=== PATIENT | male | born 1980 | race Caucasian/White ===

== ENCOUNTER → 2019-12-23 09:21 | Outpatient (CLI) | payer MEDICAID, SELFPAY ==
--- NOTE | 2019-12-23 09:26 | US_ITS ---
APPROVED REPORT Exam Type: Ankle to Brachial Index [employer] Founder: RT Beltran(R) Indications Claudication: Rest Pain: Numbness/Tingling PAD Current Smoker CAD Risk Factors Hypertension CAD Hyperlipidemia Obesity Cardiac Disease Diabetes Current Smoker Surgery/Intervention Stent : L EXTERNAL ILIAC STENTING 11/08/19, KNOWN RIGHT SFA OCCLUDED Pressures/Indices Right Indices Left Indices Brachial 121.00 mmHg Brachial 117.00 mmHg Low Thigh 82.00 mmHg 0.68 Low Thigh 70.00 mmHg 0.58 Calf 81.00 mmHg 0.67 Calf 75.00 mmHg 0.62 Ankle(PT) 83.00 mmHg 0.69 Ankle(PT) 84.00 mmHg 0.69 Ankle(DP) 87.00 mmHg 0.72 Ankle(DP) 80.00 mmHg 0.66 Digit 62.00 mmHg 0.51 Digit 59.00 mmHg 0.49 Findings R JANEE 0.7 L JANEE 0.7 R TBI 0.7 L TBI 0.7 DIMINISHED WAVEFORMS DIMINISHED PULSES Conclusion R JANEE 0.7 L JANEE 0.7 R TBI 0.7 L TBI 0.7 DIMINISHED WAVEFORMS DIMINISHED PULSES Moderate arterial disease Electronically signed by : Pedro Clark MD 12/23/2019 19:04:14
== END ==
PROVIDERS: PCP Family Medicine; Visit Provider Internal Medicine Cardiovascular Disease
DX: I70.213 Atherosclerosis of native arteries of extremities with intermittent claudication, bilateral legs (principal); I73.9 Peripheral vascular disease, unspecified; R60.0 Localized edema
CPT/HCPCS: 93923

== ENCOUNTER → 2020-07-15 17:16 | Outpatient (CLI) | payer MEDICAID, SELFPAY ==
[2020-07-15 17:46] LABS: Basophils # 0.1 K/mm3 (0-0.2); Basophils % 0.7 % (0.1-2.0); Eosinophils # 1.2 K/mm3 (0.0-0.4); Eosinophils % 10.5 % (0.1-12.0); Hematocrit 49.4 % (42.0-52.0); Hemoglobin 16.4 g/dL (14.1-18.0); Lymphocytes # 2.8 K/mm3 (0.7-4.5); Lymphocytes % 24.7 % (10-50); Mean Corpuscular HGB Conc 33.3 g/dL (31.8-35.4); Mean Corpuscular Hemoglobin 32.5 pg (27.0-31.2); Mean Corpuscular Volume 97.5 fl (80-94); Mean Platelet Volume 9.6 fl (7.4-10.4); Monocytes # 0.6 K/mm3 (0.1-1.0); Monocytes % 5.1 % (1.7-9.3); Neutrophils # 6.6 K/mm3 (1.8-7.8); Platelet Count 238 K/mm3 (142-424); Red Blood Count 5.06 M/mm3 (4.60-6.20); White Blood Count 11.2 K/mm3 (4.8-10.8)
[2020-07-15 22:40] LABS: Chloride 100 mmol/L (98-107); Potassium 5.1 mmoL/L (3.5-5.1); Sodium 135 mmol/L (136-145)
[2020-07-15 22:43] LABS: Anion Gap 16.1 mEq/L (5-15); Blood Urea Nitrogen 35 mg/dl (9-20); Carbon Dioxide 24 mmol/L (22.0-30.0); Estimated Glomerular Filt Rate 37 ml/min (>60); GFR (African American) 45 ML/MIN (>60)
[2020-07-15 22:57] LABS: Coronavirus 19 IgG Antibody Negative (Negative); Coronavirus 19 IgM Antibody Negative (Negative)
[2020-07-15 23:18] LABS: Glucose 401 mg/dl (74-100)
== END ==
PROVIDERS: Visit Provider Urology
DX: Z01.818 Encounter for other preprocedural examination (principal); N47.1 Phimosis
CPT/HCPCS: 36415; 80048; 85025; 86328

== ENCOUNTER 2020-07-17 07:51 | Day surgery (SDC) | payer MEDICAID, SELFPAY ==
[2020-07-17] VITALS (12 sets, daily range): BP systolic 93–118; BP diastolic 54–84; PULSE 72–89; RESP 16–18; TEMP 36.2–43; O2SAT 93–95; BMI 30.2
[2020-07-17 08:23] LABS: POC Glucose,Bedside 366 (70-110)
--- NOTE | 2020-07-17 08:47 | P.PN_ITS ---
[facility] Anesthesia Checklist - Patient Identification Patient Identification: Arm Band - Structural Data Admitted From: Home Planned Operative Procedure/s: circumcision Consent for Planned Operative Procedure(s) Verified: Yes Verified Documents: Surgical Consent, History and Physical - NPO Status Verified Time NPO: 00:00 - Additional verifications Anesthesia Reactions: No Hx Blood Transfusions: No Blood Transfusion Reaction: No - Airway Assessment C-Spine Mobility Assessed: Yes (mp2) TMJ Mobility Assessed: Yes Dentition: Good Dentition - Neurological Assessment Level of Consciousness: Awake, Alert - Anesthesia Plan Anesthesia Risk discussed: Yes Anesthesia Plan: Verified ASA Class: III Anesthesia Type: General [facility] History I have reviewed the patient's past medical history: Yes Medical History: Reports:: Congestive Heart Failure, Coronary Artery Disease, Diabetes Mellitus Type 2, Internal Pacemaker, MRSA, Myocardial Infarction Denies:: Cancer, Diabetes Mellitus Type 1, Seizures *Have you ever received a pneumonia vaccine?: No *Have you received a flu vaccine this season?: Yes Other Medical History: Reports: Arthritis. Denies: Blood Transfusion Reaction Anesthesia experience/problems:: nac Other Surgeries: Yes: CABG, Cardiac Catheterization, Open Heart Surgery, Pacemaker, Other (left arm surgery ) Amputation: No Fractures: No - *Social History Last grade of school completed: High school graduate Smoking Status: Current every day smoker Tobacco Type: cigarettes # Packs/Day (cigarettes): 1 Alcohol Intake: never Substance Use Type: denies use *Occupational Status:: unemployed Housing: house Household Members: spouse *Travel in the last 8 weeks: None Family Hx:: Coronary Artery Disease, Diabetes, Heart Attack, Hyperlipidemia, Hypertension, Stroke
[2020-07-17 09:09] LABS: POC Glucose,Bedside 278 (70-110)
[2020-07-17 09:39] LABS: POC Glucose,Bedside 203 (70-110)
[2020-07-17 10:24] LABS: POC Glucose,Bedside 206 (70-110)
--- NOTE | 2020-07-17 11:04 | HMH.ANESI ---
[facility] Anesthesia Record Part I Intake, IV Amount: 1,000 Estimated blood loss (mL): 5 Urine output (mL): 0 Blood Pressure: 93/54 SaO2: 93 Pulse Rate: 81 Respiratory Rate: 16 Temperature: 99.7 F Patient is:: Drowsy, Stable Stable to PACU at:: 11:00
[2020-07-17 11:10] LABS: POC Glucose,Bedside 137 (70-110)
--- NOTE | 2020-07-17 11:47 | SUR.PHASEII ---
1140- pt became sweaty and nauseas. FSBS= 113. R. Misael WIRELESS MANAGER contacted. Pt to sip orange juice. Pt tolerated sips well. family at bedside
[2020-07-17 12:00] LABS: POC Glucose,Bedside 113 (70-110)
--- NOTE | 2020-07-17 12:56 | P.OP_ITS ---
Date of procedure: 07/17/20 Pre-op Diagnosis:: Chronic balanitis Post-op Diagnosis:: Same Procedure performed:: Adult circumcision Surgeon:: Lei Noble MD PREFORMING MACHINE OPERATOR:: Higinio Douglas Anesthesia: [employer] Estimated blood loss (mL): 1 Clinical Note:: 39-year-old white male with a history of diabetes has chronic balanitis and wishes to proceed with circumcision. Operative findings:: No evidence of phimosis or balanitis today. At his office visit recently however there were some chronic foreskin changes. Operative note:: Patient taken to the operating room after informed consent was obtained. Placed on the operating table in the supine position and general anesthesia administered. IV antibiotics and sequential compression devices placed. Patient then prepped and draped in the standard surgical fashion. Local anesthetic was placed around the base of the penis as a ring block. The skin was then marked around the jimenez of the glans while pulling back at the base of the penis to estimate the length of skin that would be needed to be excised. Straight clamp was then placed onto the dorsal foreskin for 30 seconds. Good analgesia was noted. Clamp and removed and the dorsal foreskin incised. Very minimal bleeding. Metzenbaum scissors were then used to incise the skin in a circumferential fashion. Hemostasis been achieved. The proximal and distal foreskin were then reanastomosed with 3-0 chromic's in a simple interrupted fashion. A Vaseline impregnated gauze was passed around the specimen at the end the case. Patient tolerated well there are no complications. Gauze was placed around the Vaseline gauze and secured with tape. A good cosmetic result was noted. Condition: stable Disposition: PACU Specimens:: Foreskin Complications:: None
--- NOTE | 2020-07-17 13:47 | PC.NURSE ---
1108-oral airway removed at this time, O2 sats stable on room air, will continue to monitor
--- NOTE | 2020-07-17 13:54 | PC.NURSE ---
1130-detailed bedside report given to L.KingRN at this time, pt transported to post op via stretcher w/nikki rails up per L.KingRN, pt stable on discharge, vss
--- NOTE | 2020-07-17 13:57 | SUR.PHASEI ---
1130-detailed bedside report given to ,RN, pt transported to post op via stretcher w/nikki rails up per L.KingRN, pt stable upon discharge, vss
--- NOTE | 2020-07-17 13:59 | SUR.PHASEI ---
late entry..... 1105-checked fsbs with results of 134, notified SIMON Mistry at bedside, no further orders
--- NOTE | 2020-07-17 17:26 | P.PN_ITS ---
[facility] Anesthesia Record Part II Discharge Time: 11:30 Destination: Surgical Day Care (OP Surgery) PACU nurse assessment reviewed?: Yes Patient Condition:: Good Anesthesia Complications:: None Swallowing reflex intact?: Yes Cyanosis?: No Blood Pressure: 108/71 Pulse Rate: 85 Temperature: 97.9 F Mental Status: Alert & Oriented Pain level:: 0 Nausea and/or vomitting:: None Intake, IV Amount: 0
== END 2020-07-17 12:30 | disposition home or self-care (01) ==
LOC: OR 07:53
PROVIDERS: PCP Family Medicine; Visit Provider Urology
PROC: (CPT 54150; principal; 2020-07-17 09:15)
DX: N48.1 Balanitis (principal); N47.1 Phimosis; E11.9 Type 2 diabetes mellitus without complications; I73.9 Peripheral vascular disease, unspecified; I25.10 Atherosclerotic heart disease of native coronary artery without angina pectoris; Z95.810 Presence of automatic (implantable) cardiac defibrillator; M19.90 Unspecified osteoarthritis, unspecified site; K21.9 Gastro-esophageal reflux disease without esophagitis; Z95.0 Presence of cardiac pacemaker; Z95.1 Presence of aortocoronary bypass graft; Z88.0 Allergy status to penicillin; Z88.2 Allergy status to sulfonamides; Z88.6 Allergy status to analgesic agent; Z79.82 Long term (current) use of aspirin; Z79.899 Other long term (current) drug therapy; Z79.84 Long term (current) use of oral hypoglycemic drugs; Z72.0 Tobacco use
CPT/HCPCS: 54150; 82962; 96374; J1956; J2405

== ENCOUNTER → 2020-08-06 13:44 | Outpatient (CLI) | payer MEDICAID, SELFPAY | PROVIDERS: Visit Provider Family Medicine | DX: T81.40XA Infection following a procedure, unspecified, initial encounter (principal) | CPT/HCPCS: 87070; 87077; 87186; 87205 ==

== ENCOUNTER → 2020-08-25 17:30 | Outpatient (CLI) | payer MEDICAID, SELFPAY ==
[2020-08-25 19:54] LABS: Chloride 110 mmol/L (98-107); Potassium 4.6 mmoL/L (3.5-5.1); Sodium 141 mmol/L (136-145)
[2020-08-25 19:57] LABS: Anion Gap 15.6 mEq/L (5-15); Blood Urea Nitrogen 25 mg/dl (9-20); Carbon Dioxide 20 mmol/L (22.0-30.0); Estimated Glomerular Filt Rate 61 ml/min (>60); GFR (African American) 74 ML/MIN (>60); Glucose 246 mg/dl (74-100)
[2020-08-25 19:58] LABS: Calcium 9.7 mg/dl (8.4-10.2)
== END ==
PROVIDERS: Visit Provider Family Medicine
DX: R79.89 Other specified abnormal findings of blood chemistry (principal)
CPT/HCPCS: 80048

== ENCOUNTER → 2020-09-22 17:32 | Outpatient (CLI) | payer MEDICAID, SELFPAY ==
[2020-09-22 18:27] LABS: Chloride 103 mmol/L (98-107)
[2020-09-22 18:28] LABS: Sodium 137 mmol/L (136-145)
[2020-09-22 18:30] LABS: Alanine Aminotransferase 19 U/L (12-78); Alkaline Phosphatase 99 U/L (38-126); Aspartate Amino Transferase 20 U/L (17-59); Bilirubin,Total 0.3 mg/dl (0.2-1.3); Blood Urea Nitrogen 21 mg/dl (9-20); Estimated Glomerular Filt Rate 56 ml/min (>60); GFR (African American) 68 ML/MIN (>60)
[2020-09-22 18:31] LABS: Albumin Level 3.7 g/dl (3.5-5.0); Albumin/Globulin Ratio 1.4 (1.1-1.8); Calcium 9.3 mg/dl (8.4-10.2); Carbon Dioxide 25 mmol/L (22.0-30.0); Chol/HDL Ratio 4.9 (1-3.5); Cholesterol 151 mg/dl (140-200); Globulin 2.7 g/dL (1.3-3.2); HDL Cholesterol 31 mg/dl (40-60); Total Protein,Serum 6.4 g/dl (6.3-8.2)
[2020-09-22 18:32] LABS: Creatinine,Urine Random 74 mg/dL (Not Estab.); Microalbumin < 6.000 mg/L (0-16.7)
[2020-09-22 18:35] LABS: Triglycerides 501 mg/dl (30-150)
[2020-09-22 18:37] LABS: Basophils # 0.3 K/mm3 (0-0.2); Basophils % 2.2 % (0.1-2.0); Hematocrit 48.3 % (42.0-52.0); Hemoglobin 15.9 g/dL (14.1-18.0); Lymphocytes # 2.8 K/mm3 (0.7-4.5); Lymphocytes % 22.6 % (10-50); Mean Corpuscular Hemoglobin 31.2 pg (27.0-31.2); Mean Corpuscular Volume 94.8 fl (80-94); Mean Platelet Volume 26.9 fl (7.4-10.4); Monocytes # 0.6 K/mm3 (0.1-1.0); Monocytes % 4.7 % (1.7-9.3); Neutrophils % 64.8 % (37.0-80.0); Platelet Count 197 K/mm3 (142-424); Red Cell Distribution Width 17.6 % (11.5-17.5); White Blood Count 12.3 K/mm3 (4.8-10.8)
[2020-09-22 18:38] LABS: Glucose 469 mg/dl (74-100)
[2020-09-22 18:43] LABS: Direct LDL Cholesterol 67.65 mg/dL (100-129)
[2020-09-22 18:47] LABS: T4 (Thyroxine) 7.9 ug/dl (5.53-11.0)
[2020-09-22 19:01] LABS: Thyroid Stimulating Hormone 0.34 uIU/mL (0.465-4.68)
[2020-09-22 20:56] LABS: Hemoglobin A1C 11.7 % (4.0-6.0)
[2020-09-30 10:48] LABS: Testosterone, Total, LC/MS 187.2 ng/dL (264.0-916.0); Testosterone,Free 3.6 pg/mL (6.8-21.5)
== END ==
PROVIDERS: Visit Provider Family Medicine
DX: N47.1 Phimosis; N48.1 Balanitis; Z79.899 Other long term (current) drug therapy; Z79.4 Long term (current) use of insulin; E11.9 Type 2 diabetes mellitus without complications; E78.5 Hyperlipidemia, unspecified
CPT/HCPCS: 80053; 80061; 82043; 82570; 83036; 84402; 84403; 84436; 84443; 85025

== ENCOUNTER → 2020-12-07 16:50 | Outpatient (CLI) | payer MEDICAID, SELFPAY ==
--- NOTE | 2020-12-07 16:55 | XR_ITS ---
PROCEDURE: XR CHEST PORTABLE CLINICAL HISTORY: COVID Shortness of air, smoker COMPARISON: No exams were available for comparison FINDINGS: Prior CABG. Bipolar pacemaker is present. Linear metallic density noted over the mid thoracic region and 1 area over the left lower lung zone possibly due to overlying artifact. The lungs are clear without infiltrates, suspicious nodules, or pleural effusions. No acute bony abnormalities. IMPRESSION: As above, no acute finding Dictated by: Pedro Clark MD 12/07/2020 17:17 Pedro Clark MD in [facility] 12/07/2020 17:17
[2020-12-09 08:29] LABS: Covid-19 Nasal PCR Sendout P&C NEGATIVE
== END ==
PROVIDERS: PCP Family Medicine; Visit Provider Family Medicine
DX: Z20.822 Contact with and (suspected) exposure to COVID-19 (principal)
CPT/HCPCS: 71045; U0004

== ENCOUNTER → 2021-02-19 10:06 | Outpatient (CLI) | payer MEDICAID, SELFPAY ==
--- NOTE | 2021-02-19 10:10 | XR_ITS ---
PROCEDURE: XR KNEE LT 3V CLINICAL INDICATION: knee pain post fall COMPARISON: No exams were available for comparison FINDINGS: No fracture or dislocation. No lytic or blastic change. There is normal mineralization. The joint spaces are well-preserved. No significant degenerative/arthritic changes. No erosive changes evident. Other findings:No suprapatellar joint effusion. Multiple surgical sejal are noted in the soft tissues IMPRESSION: No acute abnormality. Dictated by: Laly Barr 02/19/2021 16:01 Laly Barr in [facility] 02/19/2021 16:01
== END ==
PROVIDERS: PCP Family Medicine; Visit Provider Family Medicine
DX: M25.569 Pain in unspecified knee (principal)
CPT/HCPCS: 73562

== ENCOUNTER 2021-03-25 14:36 | Emergency (ER) | payer MEDICAID, SELFPAY ==
--- NOTE | 2021-03-25 14:31 | ECG_ITS ---
APPROVED REPORT Exam: Resting ECG HR:82 bpm ECG Measurements Heart Rate 82 AXES WV 172 P 38 QRSd 110 QRS 1 QT 374 T 90 QTc 436 Conclusion Normal sinus rhythm Possible Left atrial enlargement Inferior infarct, age undetermined Anterolateral infarct, age undetermined Abnormal ECG Electronically signed by : Antonio Cohen, 03/26/2021 15:00:16
[2021-03-25 14:37] VITALS: BP 134/88; PULSE 89; RESP 18; TEMP 36.6; O2SAT 96; BMI 32.5
--- NOTE | 2021-03-25 14:40 | XR_ITS ---
PROCEDURE: XR CHEST PORTABLE CLINICAL HISTORY: soa COMPARISON: CR XR CHEST PORTABLE from 12/07/2020 FINDINGS: There has been a prior CABG. Bipolar pacemaker is present from left subclavian approach. The lungs are clear without infiltrates, suspicious nodules, or pleural effusions. No acute bony abnormalities. IMPRESSION: No acute findings. Dictated by: Pedro Clark MD 03/25/2021 15:40 Pedro Clark MD in [facility] 03/25/2021 15:40
--- NOTE | 2021-03-25 14:40 | CT_ITS ---
PROCEDURE: CT HEAD/BRAIN WO CON CLINICAL INDICATION: lethargy, left eye lid drooping COMPARISON: No exams were available for comparison TECHNIQUE: Axial images obtained. All CT scans at the facility use one or more dose reduction, viz: automated exposure control, ma/kV adjustment per patient size (including targeted exams where dose is matched to indication, i.e. head), or iterative reconstruction technique. FINDINGS: No midline shift, mass effect, intracranial hemorrhage, hydrocephalus, or extra-axial fluid collection is evident. The calvarium has an unremarkable appearance. No mastoid effusion. There is mild mucosal thickening of the ethmoid sinuses and left maxillary sinus. IMPRESSION: No acute intracranial findings. Mild sinus disease Dictated by: Pedro Clark MD 03/25/2021 15:48 Pedro Clark MD in [facility] 03/25/2021 15:48
--- NOTE | 2021-03-25 14:41 | CT_ITS ---
Procedure: CT ANGIO NECK CT ANGIO HEAD CLINICAL HISTORY: stroke like symptoms Left eye droop COMPARISON: CT CT ANGIO HEAD from 03/25/2021 TECHNIQUE: IV Contrast: 100ml Isovue 370 Axial images obtained with sagittal and coronal reformats. All CT scans at the facility use one or more dose reduction, viz: automated exposure control, ma/kV adjustment per patient size (including targeted exams where dose is matched to indication, i.e. head), or iterative reconstruction technique. FINDINGS: CT angio neck: Unremarkable appearing aortic arch. No significant carotid stenosis. Minimal plaque is present in the bulbs on both sides with less than 20 percent stenosis. The right vertebral is hypoplastic compared to the left side which appears normal. No significant stenosis. No stenosis occlusion aneurysm or dissection evident within the carotids or vertebrals. CTA head: No aneurysm, AVM, major intracranial occlusive process, or dissection evident. There is persistent origin of the right vertebral artery as a normal variant Incidental findings: Prior CABG. The thyroid gland is enlarged on both sides. There is an ill-defined area of decreased attenuation in the right lobe at 1.8 cm which may be better evaluated with ultrasound. There is moderate mucosal thickening of the left maxillary sinus and mild mucosal thickening of the right maxillary sinus with ethmoid sinus mucosal thickening also noted left greater than right. No intracranial enhancing lesions midline shift or mass effect. No obvious sinus thrombosis IMPRESSION: Unremarkable CTA of the head and neck with no occlusion, aneurysm, or dissection. Sinusitis Enlarged thyroid gland with possible right thyroid nodule which may be better evaluated with ultrasound Dictated by: Pedro Clark MD 03/25/2021 15:59 Pedro Clark MD in [facility] 03/25/2021 15:59
--- NOTE | 2021-03-25 14:42 | HMH.EDGENADL ---
ED Disposition Clinical Impression: Hyperglycemia, Generalized weakness Disposition: Home, Self-Care Condition on Discharge: Good Additional Instructions: Return to the emergency department for worsening weakness elevated blood sugar or any other concerns within the next 24 hours otherwise follow-up with your primary care physician within the next few days for evaluation of blood sugar management Referrals: David Stockton MD [Primary Care Provider] - - Critical Care Critical Care Time: No Attestation: On 03/25/21, the high probability of a clinically significant, sudden or life threatening deterioration of the following system(s) required my full and direct attention, intervention and personal management. The time I documented below is in addition to time spent performing reported procedures but includes the following listed in this critical care notation. Medical Decision Making - Medical Records Medical records reviewed: Yes: I reviewed the patient's medical records. - Ignacio Inquiry Pt receiving controlled substance: No Vital Signs: 03/25/21 14:37 03/25/21 15:26 03/25/21 15:30 Temperature 98 F Temperature Source Oral Pulse Rate 83 84 Pulse Rate [Radial] 89 Respiratory Rate 18 Blood Pressure 143/89 H 143/89 H Blood Pressure [Right Arm] 134/88 Blood Pressure Mean [Right Arm] 103 Blood Pressure Source Automatic Cuff Blood Pressure Position Sitting Blood Pressure Position [Right Arm] Sitting 02 Sat by Pulse Oximetry 96 93 L 92 L Oxygen Delivery Method Room Air Room Air 03/25/21 16:00 Temperature Temperature Source Pulse Rate 76 Pulse Rate [Radial] Respiratory Rate Blood Pressure 144/76 H Blood Pressure [Right Arm] Blood Pressure Mean [Right Arm] Blood Pressure Source Blood Pressure Position Blood Pressure Position [Right Arm] 02 Sat by Pulse Oximetry 95 Oxygen Delivery Method - Lab Data Lab Results 03/25/21 14:36: WBC 9.3, RBC 5.38, Hgb 16.2, Hct 52.4 H, MCV 97.5 H, MCH 30.1, MCHC 30.9 L, RDW 14.9, Plt Count 294, MPV 8.7, Neut % (Auto) 59.6, Lymph % (Auto) 24.6, [place] % (Auto) 6.5, Eos % (Auto) 8.3, Baso % (Auto) 1.0, Neut # (Auto) 5.5, Lymph # (Auto) 2.3, [place] # (Auto) 0.6, Eos # (Auto) 0.8 H, Baso # (Auto) 0.1 03/25/21 14:36: Sodium 135 L, Potassium 4.7, Chloride 101, Carbon Dioxide 30, Anion Gap 8.7, BUN 18, Creatinine 1.30 H, Estimated Creat Clear 121, Estimated GFR 61, Est GFR ( Amer) 73, Glucose 459 H*, Calcium 8.7, Magnesium 2.0, Total Bilirubin 0.4, AST 23, ALT 20, Alkaline Phosphatase 111, Troponin I < 0.01, NT-Pro-B Natriuret Pep 426 H, Total Protein 6.9, Albumin 3.9, Globulin 3.0, Albumin/Globulin Ratio 1.3, TSH 0.51 03/25/21 14:40: VBG pH 7.31, VBG pCO2 51.8 H, VBG pO2 43.0 H, VBG HCO3 25.4, VBG Total CO2 27.0, VBG O2 Saturation 81.1 H, VBG Base Excess -0.8 Result diagrams: 03/25/21 14:36 03/25/21 14:36 Orders (Tests/Meds): ED MEDICATIONS Discontinued Medications Generic Name Dose Route Start Last Admin Trade Name Freq PRN Reason Stop Dose Admin Insulin Human Regular 10 unit 03/25/21 15:47 03/25/21 16:06 Insulin Human Regular 100 Units/Ml 10ml Vial IVP 03/25/21 15:48 10 unit ONCE ONE Administration Iopamidol 100 ml 03/25/21 15:07 03/25/21 15:08 Iopamidol-370 (76%);100ml Bottle IV 03/25/21 15:08 100 ml ONCE ONE Administration Sodium Chloride 40 ml 03/25/21 15:07 03/25/21 15:08 0.9 % Sodium Chloride 50 Ml Vial IV 03/25/21 15:08 40 ml ONCE ONE Administration Sodium Chloride 10 ml 03/25/21 15:07 03/25/21 15:08 Sodium Chloride 0.9% 10ml Syr (Rad Only) IV 03/25/21 15:08 10 ml ONCE ONE Administration ORDERS Category Date Time Status Troponin I Q3H Lab 03/25/21 17:45 Ordered Troponin I Q3H Lab 03/25/21 20:45 Ordered Medical Decision Narrative: 40-year-old male presents with generalized weakness as above. He is in no acute distress nontoxic-appearing with normal vital signs initial
[2021-03-25 14:49] LABS: Basophils # 0.1 K/mm3 (0-0.2); Eosinophils # 0.8 K/mm3 (0.0-0.4); Eosinophils % 8.3 % (0.1-12.0); Hematocrit 52.4 % (42.0-52.0); Hemoglobin 16.2 g/dL (14.1-18.0); Lymphocytes # 2.3 K/mm3 (0.7-4.5); Lymphocytes % 24.6 % (10-50); Mean Corpuscular HGB Conc 30.9 g/dL (31.8-35.4); Mean Corpuscular Hemoglobin 30.1 pg (27.0-31.2); Mean Corpuscular Volume 97.5 fl (80-94); Mean Platelet Volume 8.7 fl (7.4-10.4); Monocytes # 0.6 K/mm3 (0.1-1.0); Monocytes % 6.5 % (1.7-9.3); Neutrophils # 5.5 K/mm3 (1.8-7.8); Neutrophils % 59.6 % (37.0-80.0); Platelet Count 294 K/mm3 (142-424); Red Blood Count 5.38 M/mm3 (4.60-6.20); Red Cell Distribution Width 14.9 % (11.5-17.5); White Blood Count 9.3 K/mm3 (4.8-10.8)
[2021-03-25 14:50] LABS: VBG Base Excess -0.8 mmol/L (-2.4-2.3); VBG HCO3 25.4 mmol/L (23-30); VBG Oxygen Saturation 81.1 % (50-70); VBG PCO2 51.8 mmol/L (35-51); VBG PH 7.31 mmol/L (7.31-7.41)
--- NOTE | 2021-03-25 14:55 | PC.NURSE ---
Rad at bedside
[2021-03-25 14:56] LABS: Chloride 101 mmol/L (98-107); Sodium 135 mmol/L (136-145)
--- NOTE | 2021-03-25 14:56 | PC.NURSE ---
pt going to CT
[2021-03-25 14:57] LABS: Potassium 4.7 mmoL/L (3.5-5.1)
[2021-03-25 14:59] LABS: Alanine Aminotransferase 20 U/L (12-78); Alkaline Phosphatase 111 U/L (38-126); Anion Gap 8.7 mEq/L (5-15); Aspartate Amino Transferase 23 U/L (17-59); Bilirubin,Total 0.4 mg/dl (0.2-1.3); Blood Urea Nitrogen 18 mg/dl (9-20); Carbon Dioxide 30 mmol/L (22.0-30.0); Creatinine Clearance Estimated 121 mL/min (50-200); Estimated Glomerular Filt Rate 61 ml/min (>60); GFR (African American) 73 ML/MIN (>60)
[2021-03-25 15:00] LABS: Albumin Level 3.9 g/dl (3.5-5.0); Albumin/Globulin Ratio 1.3 (1.1-1.8); Calcium 8.7 mg/dl (8.4-10.2); Glucose 459 mg/dl (74-100); Total Protein,Serum 6.9 g/dl (6.3-8.2)
--- NOTE | 2021-03-25 15:00 | PC.NURSE ---
Crtical lab value of 459 Glucose
[2021-03-25 15:09] LABS: NT Pro Brain Natriuretic Pep. 426 pg/mL (0-125)
[2021-03-25 15:19] LABS: Troponin I < 0.01 ng/ml (0.00-0.034)
[2021-03-25 15:26] VITALS: BP 143/89; PULSE 83; O2SAT 93
--- NOTE | 2021-03-25 15:26 | PC.NURSE ---
returned from rad
[2021-03-25 15:30] VITALS: BP 143/89; PULSE 84; O2SAT 92
[2021-03-25 15:31] LABS: Thyroid Stimulating Hormone 0.51 uIU/mL (0.465-4.68)
[2021-03-25 16:00] VITALS: BP 144/76; PULSE 76; O2SAT 95
[2021-03-25 16:35] VITALS: BP 144/76; PULSE 76; RESP 18; TEMP 36.7; O2SAT 91
== END 2021-03-25 16:37 | disposition home or self-care (01) ==
PROVIDERS: Emergency Provider Emergency Medicine; PCP Family Medicine
DX: E11.65 Type 2 diabetes mellitus with hyperglycemia (principal); I10 Essential (primary) hypertension; E78.5 Hyperlipidemia, unspecified; I50.9 Heart failure, unspecified; F17.210 Nicotine dependence, cigarettes, uncomplicated; Z88.0 Allergy status to penicillin; Z88.2 Allergy status to sulfonamides; Z88.5 Allergy status to narcotic agent; Z79.899 Other long term (current) drug therapy
CPT/HCPCS: 70450; 70496; 70498; 71045; 80053; 82803; 83735; 83880; 84443; 84484; 85025; 93005; 96372; 99282; Q9967

== ENCOUNTER → 2021-05-14 13:44 | Outpatient (CLI) | payer MEDICAID, SELFPAY | PROVIDERS: Visit Provider Family Medicine | DX: E11.9 Type 2 diabetes mellitus without complications (principal); Z79.4 Long term (current) use of insulin | CPT/HCPCS: 83036 ==

== ENCOUNTER → 2021-05-18 12:39 | Outpatient (CLI) | payer MEDICAID, SELFPAY ==
--- NOTE | 2021-05-18 12:45 | XR_ITS ---
PROCEDURE: XR HIP LT 2-3V W/PELVIS CLINICAL INDICATION: lt hip pain COMPARISON: No exams were available for comparison FINDINGS: An AP view of the pelvis shows slight decrease in the hip joint space on both sides. Minimal spurring noted at the femoral head on the left. There is a left iliac artery stent present. No acute fracture or dislocation. Surgical clips are present along the medial aspect of the left thigh. IMPRESSION: Minimal osteoarthritic change of the hips Dictated by: Pedro Clark MD 05/18/2021 17:39 Pedro Clark MD in [facility] 05/18/2021 17:39
--- NOTE | 2021-05-18 12:45 | XR_ITS ---
PROCEDURE: XR KNEE LT 4V CLINICAL INDICATION: left knee pain COMPARISON: CR XR KNEE LT 3V from 02/19/2021 FINDINGS: No fracture or dislocation. No lytic or blastic change. There is normal mineralization. Minimal osteoarthritic changes are present with slight decrease in the joint space medially and laterally and minimal spurring at the patellofemoral joint and lateral joint space. Surgical clips are present along the medial thigh knee and leg. Other findings:None. IMPRESSION: Minimal osteoarthritic changes of the left knee not significantly changed Dictated by: Pedro Clark MD 05/18/2021 17:40 Pedro Clark MD in [facility] 05/18/2021 17:40
== END ==
PROVIDERS: PCP Family Medicine; Visit Provider Orthopaedic Surgery
DX: M25.552 Pain in left hip (principal); M25.562 Pain in left knee
CPT/HCPCS: 73502; 73564

== ENCOUNTER → 2021-06-28 13:40 | Outpatient (CLI) | payer MEDICAID, SELFPAY ==
[2021-06-28 14:08] LABS: Basophils # 0.1 K/mm3 (0-0.2); Basophils % 0.9 % (0.1-2.0); Eosinophils # 0.5 K/mm3 (0.0-0.4); Eosinophils % 5.1 % (0.1-12.0); Hematocrit 52.3 % (42.0-52.0); Hemoglobin 16.8 g/dL (14.1-18.0); Lymphocytes # 1.7 K/mm3 (0.7-4.5); Lymphocytes % 17.6 % (10-50); Mean Corpuscular HGB Conc 32.1 g/dL (31.8-35.4); Mean Corpuscular Volume 87.3 fl (80-94); Mean Platelet Volume 9.6 fl (7.4-10.4); Monocytes # 0.7 K/mm3 (0.1-1.0); Monocytes % 6.7 % (1.7-9.3); Neutrophils # 6.8 K/mm3 (1.8-7.8); Neutrophils % 69.7 % (37.0-80.0); Platelet Count 324 K/mm3 (142-424); Red Blood Count 5.98 M/mm3 (4.60-6.20); Red Cell Distribution Width 15.1 % (11.5-17.5); White Blood Count 9.8 K/mm3 (4.8-10.8)
[2021-06-28 14:25] LABS: Alanine Aminotransferase 17 U/L (12-78); Albumin Level 3.9 g/dl (3.5-5.0); Albumin/Globulin Ratio 1.4 (1.1-1.8); Alkaline Phosphatase 96 U/L (38-126); Anion Gap 16.8 mEq/L (5-15); Aspartate Amino Transferase 15 U/L (17-59); Bilirubin,Total 0.4 mg/dl (0.2-1.3); Blood Urea Nitrogen 21 mg/dl (9-20); Calcium 9.7 mg/dl (8.4-10.2); Carbon Dioxide 24 mmol/L (22.0-30.0); Chloride 103 mmol/L (98-107); Chol/HDL Ratio 4.4 (1-3.5); Cholesterol 158 mg/dl (140-200); Estimated Glomerular Filt Rate 73 ml/min (>60); GFR (African American) 89 ML/MIN (>60); Globulin 2.7 g/dL (1.3-3.2); Glucose 303 mg/dl (74-100); HDL Cholesterol 36 mg/dl (40-60); Potassium 4.8 mmoL/L (3.5-5.1); Sodium 139 mmol/L (136-145); Total Protein,Serum 6.6 g/dl (6.3-8.2); Triglycerides 210 mg/dl (30-150); VLDL Cholesterol 42 mg/dL (0-40)
[2021-06-28 14:37] LABS: Hemoglobin A1C 9.8 % (4.0-6.0)
[2021-06-28 14:44] LABS: Direct LDL Cholesterol 102.27 mg/dL (100-129)
[2021-06-28 14:46] LABS: T4 (Thyroxine) 7.8 ug/dl (5.53-11.0)
[2021-06-28 14:48] LABS: 25-OH Vitamin D, Total 17.3 ng/mL (30-100)
[2021-06-28 15:00] LABS: Prostate Specific Ag Screen 0.8 ng/ml (0.0-4.0); Thyroid Stimulating Hormone 0.94 uIU/mL (0.465-4.68)
[2021-06-28 16:27] LABS: Creatinine,Urine Random 34 mg/dL (Not Estab.)
[2021-06-30 12:27] LABS: C-Peptide 7.7 ng/mL (1.1-4.4)
== END ==
PROVIDERS: Visit Provider Nurse Practitioner Family
DX: I25.10 Atherosclerotic heart disease of native coronary artery without angina pectoris (principal); E08.21 Diabetes mellitus due to underlying condition with diabetic nephropathy; E78.5 Hyperlipidemia, unspecified; G62.9 Polyneuropathy, unspecified; I11.9 Hypertensive heart disease without heart failure; I73.9 Peripheral vascular disease, unspecified; N28.9 Disorder of kidney and ureter, unspecified; Z12.5 Encounter for screening for malignant neoplasm of prostate; Z79.4 Long term (current) use of insulin
CPT/HCPCS: 80053; 80061; 82043; 82306; 82570; 83036; 84436; 84443; 84681; 85025; G0103

== ENCOUNTER → 2021-07-15 06:14 | Outpatient (CLI) | payer MEDICAID, SELFPAY ==
--- NOTE | 2021-07-15 06:16 | NM_ITS ---
APPROVED REPORT Exam: Nuclear Stress Test Indication: Chest pain..daibetes..high BP..High cholesterol..tobacco user Patient Location: Outpatient Stress Tech: Casie Sanchez NM Tech:GISSELL Cedillo RT(R)(N) Ht: 6 ft 3 in Wt: 247 lbs HR: 68 bpm BP: 110/74 mmHg BSA: 2.40 m2 BMI: 30.8 History: Chest pain..daibetes..high BP..High cholesterol..tobacco user Procedure: Patient received a 0.4 mg of intravenous Lexiscan, resting heart rate 68 bpm, resting blood pressure 110/74 mmHg, with Lexiscan maximum heart rate achived was 106 bpm which is Less than 85 % of the maximum predicted heart rate and blood pressure was 125/79 mmHg. With Lexiscan, patient denied any complaint of chest pain. Electrocardiogram Resting electrocardiogram showed sinus rhythm, with Lexiscan there is less than 1.[address] segment depression noted from the baseline EKG. The EKG portion of the Lexiscan is nondiagnostic. Cardiac Stress and Resting SPECT Images: Cardiac Stress and Resting SPECT images were obtained using technetium 99m Myoview 31.5 mCi stress and 9.89 mCi at rest. Gated SPECT for analysis of segmental wall motion and calculation of ejection fraction also done, prone images were also obtained. Cardiac stress and resting SPECT images show a fixed defect involving the anterior apical, apex and anteroseptal wall consistent with area of myocardial scarring without significant elizabeth-infarct ischemia, computer derived ejection fraction is 22% with marked hypokinesis involving the anterior apical apex and anteroseptal wall, left ventricle is dilated both stress and rest, right ventricle is normal size and contractility. Conclusion: 1. The EKG portion of the Lexiscan is nondiagnostic 2. Scintigraphic evidence of myocardial scarring involving the anterior apical, apex and anteroseptal wall without significant elizabeth-infarct ischemia, computer derived ejection fraction 22% with segmental wall motion abnormality described above, left ventricle is dilated both stress and rest, right ventricle is normal size and contractility. 3. Abnormal Lexiscan Myoview study. Electronically signed by : Benigno Kim MD 07/15/2021 15:01:36
--- NOTE | 2021-07-15 06:16 | CA_ITS ---
APPROVED REPORT Exam: Pharmacologic Technologist: Casie Sanchez, Ht: 6 ft 2 in Wt: 253 lbs BSA: 2.40 m2 HR: 68 bpm BP: 120/74 mmHg Rhythm: NSR, RAD, poor R wave progression, ST-T abns inferiorly in V6, NS IVCD Medical History Medical History: HTN, Hyperlipidemia, Diabetic ??? Insulin, CAD s/p [place] Medications: Lisinopril,,,,, Aspirin,,,,, Carvedilol,,,,, PERCOCET,,,,, INSULIN,,,,, AtorvaASTATIN,,,,, Testosterone,,,,, SilDENAFIL,,,,, RIvaROXABAN,,,,, LiTHIUM carbonate,,,,, Furosemide,,,,, Pantoprzole,,,,, Cardiac Risk Factors: HTN, Hyperlipidemia, Diabetes (insulin) Stress Test Details Test: LEXISCAN HR Resting HR: 69 bpm Max Heart Rate (APMHR): 178.346413 bpm Max HR Achieved: 106 bpm Target HR (85% APMHR): 151.213956 bpm % of APMHR: 59.55 Recovery HR: 87 bpm BP Resting BP: 120/74 mmHg Max BP: 128/78 mmHg Recovery BP: 122.0/77.0 mmHg ECG Resting ECG: NSR, RAD, poor R wave progression, ST-T abns inferiorly in V6, NS IVCD Clinical Exercise duration: 04:01 min Highest Stage Achieved: Exercise capacity: 1.0 METs Stress ECG Conclusion During lexiscan pt experinced SOA, malaise, but no CP. No arrhymthias or ectopy noted. Exaggeration of baseline ST-T abns. Non diagnostic lexiscan stress, myoview images reported separately. Test Summary REST . . . . . . . Sitting REST 03:05 . . 69 . 120/ 74 . . Stage 1 01:00 . . 85 . . . . Stage 2 01:00 . . 105 . . . . Stage 3 01:00 . . 99 . 125/ 79 . . Stage 4 01:00 . . 87 . 128/ 78 . . Stage 4 01:01 . . 87 . 128/ 78 . Stop exercise at 04:01 RECOVERY 01:00 . . 87 . . . . RECOVERY 02:00 . . 80 . 122/ 77 . . RECOVERY 03:00 . . 76 . 121/ 78 . . RECOVERY 03:19 . . 80 . 121/ 78 . . Electronically signed by : Benigno Kim MD 07/15/2021 14:58:20
--- NOTE | 2021-07-15 06:16 | US_ITS ---
APPROVED REPORT Exam Type: Ankle to Brachial Index Electric Organ Checker: RT Beltran(R) Indications Claudication: Bilaterally Rest Pain: Bilaterally PAD Current Smoker Left femoral stent, history of CABG Risk Factors History of PAD: Hypertension CAD Hyperlipidemia Obesity TIA/CVA History Diabetes Current Smoker Pressures/Indices Right Indices Left Indices Brachial 108.00 mmHg Brachial 119.00 mmHg Low Thigh 84.00 mmHg 0.71 Low Thigh 97.00 mmHg 0.82 Calf 83.00 mmHg 0.70 Calf 88.00 mmHg 0.74 Ankle(PT) 89.00 mmHg 0.75 Ankle(PT) 83.00 mmHg 0.70 Ankle(DP) 86.00 mmHg 0.72 Ankle(DP) 74.00 mmHg 0.62 Digit 77.00 mmHg 0.65 Digit 56.00 mmHg 0.47 Findings RT JANEE=0.75 LT JANEE=0.70 RT TBI=0.65 LT TBI=0.47 Diminished waveforms bilaterally Diminished pulses bilaterally Conclusion RT JANEE=0.75 LT JANEE=0.70 RT TBI=0.65 LT TBI=0.47 Diminished waveforms bilaterally Diminished pulses bilaterally Moderate arterial disease Electronically signed by : Pedro Clark MD 07/15/2021 16:07:34
--- NOTE | 2021-07-15 06:16 | CT_ITS ---
Procedure: CT ANGIO ABDOMEN/FEMORAL CLINICAL HISTORY: claudication COMPARISON: No exams were available for comparison TECHNIQUE: IV Contrast: 100ml Isovue 370 Axial images obtained with sagittal and coronal reformats. All CT scans at the facility use one or more dose reduction, viz: automated exposure control, ma/kV adjustment per patient size (including targeted exams where dose is matched to indication, i.e. head), or iterative reconstruction technique. Helical images performed from the mid abdominal aorta below the level of the renal arteries is SMA and celiac artery through the feet. FINDINGS: LOWER ABDOMEN AND PELVIS CTA: The mid abdominal aorta has an unremarkable appearance. There is minimal amount eccentric calcific plaque. Mild amount of plaque is present at the aortic bifurcation. There is 40 percent luminal narrowing of the proximal right common iliac artery and 40 percent smooth segment stenosis involving the proximal right external iliac artery. Atheromatous changes are present involving the right common femoral with up to 50 percent stenosis distally. Atheromatous changes involve the left common iliac without significant stenosis. There is a widely patent stent in the proximal left external iliac artery. The distal left internal iliac and common femoral have an unremarkable appearance. Right lower extremity runoff: Small ulceration is present at the distal right common femoral artery. There is critical stenosis involving the proximal femoral artery 90 percent. This area of stenosis extends for length of 1 cm. The femoral artery them a comes less stenotic at approximately 50 percent stenosis for length of 1.8 cm and then narrows again to severe stenosis of 90 percent with occlusion of the right femoral artery in its mid aspect and reconstitution at the junction of the mid distal SFA at Leander's canal. Popliteal artery has an unremarkable appearance. Atheromatous changes involve the tibial peroneal trunk and anterior tibial artery. Runoff vessels are very small. Delayed images are obtained from knee to the foot showing two vessel runoff to the ankle including the dorsalis pedis and posterior tibial artery. Left lower extremity runoff: 30 percent stenosis involves the left common femoral artery. Mild atheromatous changes involve the proximal and mid femoral artery. There is high-grade stenosis of the mid femoral artery of 75 percent followed by small segment of normal caliber and then occlusion of the left femoral artery at the junction of the the mid distal 3rd with reconstitution 2 cm distal to the area of occlusion. There is small caliber of the runoff vessels below the knee. Small vessel disease noted. The dorsalis pedis and posterior tib are patent to the ankle. IMPRESSION: Abnormal CT a of the lower abdomen and pelvis with bilateral lower extremity runoff with multiple abnormalities as detailed above the most significant of which include severe/90 percent stenosis of the proximal femoral artery on the right with occlusion of the right femoral artery insert mid aspect and reconstitution distally. High-grade stenosis of the mid femoral artery on the left of 75 percent with short segment occlusion in the distal left femoral artery with reconstitution Small vessel disease involves both lower extremities below the knee. Patent left external iliac artery stent Dictated by: Pedro Clark MD 07/15/2021 15:34 Pedro Clark MD in [facility] 07/15/2021 15:34
[2021-07-15 07:44] LABS: Chloride 105 mmol/L (98-107)
[2021-07-15 07:45] LABS: Potassium 4.4 mmoL/L (3.5-5.1); Sodium 144 mmol/L (136-145)
[2021-07-15 07:47] LABS: Alanine Aminotransferase 28 U/L (12-78); Alkaline Phosphatase 68 U/L (38-126); Aspartate Amino Transferase 23 U/L (17-59); Bilirubin,Total 0.2 mg/dl (0.2-1.3); Blood Urea Nitrogen 29 mg/dl (9-20); Estimated Glomerular Filt Rate 61 ml/min (>60); GFR (African American) 73 ML/MIN (>60)
[2021-07-15 07:48] LABS: Albumin Level 3.7 g/dl (3.5-5.0); Albumin/Globulin Ratio 1.2 (1.1-1.8); Anion Gap 15.4 mEq/L (5-15); Calcium 8.8 mg/dl (8.4-10.2); Carbon Dioxide 28 mmol/L (22.0-30.0); Cholesterol 164 mg/dl (140-200); Glucose 353 mg/dl (74-100); HDL Cholesterol 33 mg/dl (40-60); Total Protein,Serum 6.7 g/dl (6.3-8.2); Triglycerides 265 mg/dl (30-150); VLDL Cholesterol 53 mg/dL (0-40)
[2021-07-15 08:05] LABS: Direct LDL Cholesterol 94.26 mg/dL (100-129)
[2021-07-15 08:28] LABS: Hemoglobin A1C 8.1 % (4.0-6.0)
== END ==
PROVIDERS: PCP Family Medicine; Visit Provider Physician Assistant
DX: I20.9 Angina pectoris, unspecified (principal); I25.5 Ischemic cardiomyopathy; I73.9 Peripheral vascular disease, unspecified; R60.0 Localized edema; I11.9 Hypertensive heart disease without heart failure; E78.5 Hyperlipidemia, unspecified; E11.9 Type 2 diabetes mellitus without complications; Z79.4 Long term (current) use of insulin; Z71.6 Tobacco abuse counseling; Z95.1 Presence of aortocoronary bypass graft; Z95.810 Presence of automatic (implantable) cardiac defibrillator; Z76.0 Encounter for issue of repeat prescription; F17.210 Nicotine dependence, cigarettes, uncomplicated
CPT/HCPCS: 75635; 78452; 80053; 80061; 83036; 93017; 93923; A9502; J2785; Q9967

== ENCOUNTER 2021-07-23 08:58 | Day surgery (SDC) | payer MEDICAID, SELFPAY ==
[2021-07-23] VITALS (17 sets, daily range): BP systolic 117–137; BP diastolic 73–93; PULSE 68–88; RESP 18–20; TEMP 36.9; O2SAT 93–99; BMI 32.7
--- NOTE | 2021-07-23 | IR_ITS ---
APPROVED REPORT Patient Location: [facility]patient [facility] Living Care Manager: GISSELL Shea RT (R) PROCEDURES Left heart catheterization Left ventriculogram Selective coronary angiogram Selective engagement left internal mammary artery with angiography Selective engage the saphenous vein graft to the dominant right coronary Catheter placed abdominal aorta Abdominal aortography Repositioning of the catheter in the abdominal aorta Bilateral iliofemoral runoff INDICATION Coronary artery disease, History of coronary bypass surgery, High risk abnormal Myoview ejection fraction 22%, Peripheral artery disease, Jordan claudication class III, Abnormal JANEE Informed consent was obtained prior to the procedure. COMPLICATIONS None Estimated Blood Loss: Less than 10 mls TECHNIQUE One percent lidocaine used to anesthetize the right groin. The right femoral artery was accessed via the Seldinger technique and a 5 Burkinan sheath was placed in the right femoral artery. A JL 4, JR4 catheter were used to perform left heart catheterization, left ventriculogram selective coronary angiography as well as selective engagement of the 1 vein graft and the left internal mammary artery. At the end of the procedure the pigtail catheter was placed in the abdominal aorta and abdominal aortography was performed. The catheter was then repositioned and bilateral iliofemoral runoff was performed. At the end the procedure the apparatus was removed the patient was transferred to the postop putting in stable condition for sheath removal ANGIOGRAPHIC RESULTS The left main artery Normal The left anterior descending artery Proximally normal and then severely diseased immediately after the first septal superintendent factory The circumflex artery Small nondominant and patent The right coronary artery Large dominant ostially occluded The ALMAGUER ventriculogram reveals Severe left ventricular dilatation with severely reduced ejection fraction estimated at 20% The left ventricular end-diastolic pressure Severely elevated at 38 mmHg The left internal mammary artery is widely patent to the LAD Saphenous vein graft to the dominant right coronary is widely patent The infrarenal abdominal aorta is mildly atheromatous. The bilateral common iliac arteries are normal in the bilateral internal iliac arteries are widely patent The right external iliac artery has a smooth 20 to 30% stenosis while the left external iliac artery has a widely patent stent with excellent proximal distal transitioning The bilateral common femoral arteries are widely patent. The bilateral profunda femoris arteries are widely patent The right superficial femoral artery is proximally occluded with subtotal occlusion at the ostial level. It is occluded throughout its entire course and then recannulate's at Pending sale to [facility] at the popliteal level. The popliteal artery is then widely patent after recanalization and has three-vessel runoff below the knee. The left superficial femoral artery is widely patent in its proximal segment and then occluded at Leander's canal. At the end of recannulate's at the mid popliteal level. There is three-vessel runoff below the knee on the left side IMPRESSION Coronary disease as described above Adequate surgical revascularization as described above Severely elevated LVEDP Severe left ventricular dysfunction Patent stent in the left external iliac artery Severe occlusion throughout the entire right superficial femoral artery with three-vessel runoff below the knee Focal occlusion at Leander's canal involving the left SFA and left popliteal artery which recanalizes and then provides three-vessel runoff below the knee PLAN 1. Medical management for
[2021-07-23 09:39] LABS: Coronavirus 19, PCR Not Detected (NotDetected); Influenza A, PCR Not Detected (NotDetected); Influenza B, PCR Not Detected (NotDetected)
[2021-07-23 09:41] LABS: Basophils # 0.1 K/mm3 (0-0.2); Basophils % 0.6 % (0.1-2.0); Eosinophils # 0.7 K/mm3 (0.0-0.4); Eosinophils % 6.1 % (0.1-12.0); Hematocrit 51.3 % (42.0-52.0); Hemoglobin 16.3 g/dL (14.1-18.0); Lymphocytes # 1.9 K/mm3 (0.7-4.5); Lymphocytes % 17.8 % (10-50); Mean Corpuscular HGB Conc 31.7 g/dL (31.8-35.4); Mean Corpuscular Hemoglobin 28.4 pg (27.0-31.2); Mean Corpuscular Volume 89.6 fl (80-94); Mean Platelet Volume 8.8 fl (7.4-10.4); Monocytes # 0.7 K/mm3 (0.1-1.0); Monocytes % 6.1 % (1.7-9.3); Neutrophils # 7.3 K/mm3 (1.8-7.8); Neutrophils % 69.4 % (37.0-80.0); Platelet Count 249 K/mm3 (142-424); Red Blood Count 5.73 M/mm3 (4.60-6.20); Red Cell Distribution Width 15.2 % (11.5-17.5); White Blood Count 10.6 K/mm3 (4.8-10.8)
[2021-07-23 09:54] LABS: Chloride 108 mmol/L (98-107)
[2021-07-23 09:55] LABS: Potassium 4.6 mmoL/L (3.5-5.1); Sodium 138 mmol/L (136-145)
[2021-07-23 09:58] LABS: Anion Gap 12.6 mEq/L (5-15); Blood Urea Nitrogen 32 mg/dl (9-20); Calcium 9.1 mg/dl (8.4-10.2); Carbon Dioxide 22 mmol/L (22.0-30.0); Creatinine Clearance Estimated 131 mL/min (50-200); Estimated Glomerular Filt Rate 66 ml/min (>60); GFR (African American) 80 ML/MIN (>60); Glucose 223 mg/dl (74-100)
== END 2021-07-23 15:08 | disposition home or self-care (01) ==
LOC: CATHLAB 09:00
PROVIDERS: PCP Family Medicine; Visit Provider Internal Medicine
DX: I25.118 Atherosclerotic heart disease of native coronary artery with other forms of angina pectoris (principal); E78.5 Hyperlipidemia, unspecified; F17.210 Nicotine dependence, cigarettes, uncomplicated; I11.9 Hypertensive heart disease without heart failure; I25.5 Ischemic cardiomyopathy; N28.9 Disorder of kidney and ureter, unspecified; Z71.6 Tobacco abuse counseling; Z95.0 Presence of cardiac pacemaker; Z95.1 Presence of aortocoronary bypass graft; Z95.810 Presence of automatic (implantable) cardiac defibrillator; E11.9 Type 2 diabetes mellitus without complications; Z79.4 Long term (current) use of insulin; I70.213 Atherosclerosis of native arteries of extremities with intermittent claudication, bilateral legs; I77.1 Stricture of artery; Z20.822 Contact with and (suspected) exposure to COVID-19; Z79.899 Other long term (current) drug therapy
CPT/HCPCS: 80048; 85025; 93459; 99152; 99153; C1725; C1769; C1894; G0278; J1644; Q9966; Q9967; U0003

== ENCOUNTER → 2021-08-11 14:51 | Outpatient (CLI) | payer MEDICAID, SELFPAY | PROVIDERS: PCP Family Medicine; Visit Provider Nurse Practitioner | DX: Z20.822 Contact with and (suspected) exposure to COVID-19 (principal) | CPT/HCPCS: C9803; U0003; U0005 ==

== ENCOUNTER → 2021-10-01 09:47 | Outpatient (CLI) | payer MEDICAID, SELFPAY ==
[2021-10-01 10:19] LABS: Basophils # 0.1 K/mm3 (0-0.2); Basophils % 1.4 % (0.1-2.0); Eosinophils # 0.6 K/mm3 (0.0-0.4); Eosinophils % 6.5 % (0.1-12.0); Hematocrit 50.4 % (42.0-52.0); Hemoglobin 16.4 g/dL (14.1-18.0); Lymphocytes # 1.7 K/mm3 (0.7-4.5); Lymphocytes % 17.5 % (10-50); Mean Corpuscular HGB Conc 32.6 g/dL (31.8-35.4); Mean Corpuscular Hemoglobin 29.8 pg (27.0-31.2); Mean Corpuscular Volume 91.3 fl (80-94); Mean Platelet Volume 10.1 fl (7.4-10.4); Monocytes # 0.6 K/mm3 (0.1-1.0); Monocytes % 5.8 % (1.7-9.3); Neutrophils # 6.8 K/mm3 (1.8-7.8); Neutrophils % 68.7 % (37.0-80.0); Platelet Count 254 K/mm3 (142-424); Red Blood Count 5.52 M/mm3 (4.60-6.20); Red Cell Distribution Width 16.6 % (11.5-17.5); White Blood Count 9.9 K/mm3 (4.8-10.8)
[2021-10-01 11:10] LABS: Anion Gap 12.8 mEq/L (5-15); Blood Urea Nitrogen 30 mg/dl (9-20); Calcium 9.5 mg/dl (8.4-10.2); Carbon Dioxide 26 mmol/L (22.0-30.0); Chloride 105 mmol/L (98-107); Estimated Glomerular Filt Rate 55 ml/min (>60); GFR (African American) 67 ML/MIN (>60); Glucose 187 mg/dl (74-100); Phosphorous 2.7 mg/dl (2.5-4.5); Potassium 4.8 mmoL/L (3.5-5.1); Sodium 139 mmol/L (136-145)
[2021-10-01 11:22] LABS: Intact Parathyroid Hormone 144.7 pg/mL (7.5-53.5)
[2021-10-01 11:29] LABS: 25-OH Vitamin D, Total 42.1 ng/mL (30-100)
== END ==
PROVIDERS: Visit Provider Internal Medicine Nephrology
DX: N18.2 Chronic kidney disease, stage 2 (mild) (principal); R80.9 Proteinuria, unspecified
CPT/HCPCS: 36415; 80069; 82306; 83970; 85025

== ENCOUNTER → 2021-10-04 10:04 | Outpatient (CLI) | payer MEDICAID, SELFPAY ==
[2021-10-04 10:10] LABS: Microscopic, Urine URINE MICROSCOPIC (MICROSCOPIC)
[2021-10-04 10:42] LABS: Appearance,Urine CLEAR (Clear); Bilirubin,Urine Negative (Negative); Blood, Urine TRACE-I (Negative); Color,Urine YELLOW (Yellow); Glucose,Urine (UA) 2+ (Negative); Ketones,Urine Negative (Negative); Leukocyte Esterase,Urine Negative (Negative); Nitrate,Urine Negative (Negative); Protein,Urine Negative (Negative); Specific Gravity, Urine 1.015 (1.005-1.030); Urobilinogen,Urine 0.2 EU/dl (0.2)
[2021-10-04 11:33] LABS: Creatinine,Urine Random 17 mg/dL (Not Estab.)
== END ==
PROVIDERS: Visit Provider Internal Medicine Nephrology
DX: N18.2 Chronic kidney disease, stage 2 (mild) (principal); R80.9 Proteinuria, unspecified; E55.9 Vitamin D deficiency, unspecified
CPT/HCPCS: 81001; 82043; 82570; 84155

== ENCOUNTER → 2021-10-04 10:35 | Outpatient (POV) | payer MEDICAID, SELFPAY | PROVIDERS: Visit Provider Internal Medicine Nephrology | DX: Z00.00 Encounter for general adult medical examination without abnormal findings (principal) ==

== ENCOUNTER → 2022-01-25 11:51 | Outpatient (CLI) | payer MEDICAID, SELFPAY ==
[2022-01-24 17:43] LABS: Basophils # 0.1 K/mm3 (0-0.2); Eosinophils # 0.5 K/mm3 (0.0-0.4); Eosinophils % 5.7 % (0.1-12.0); Hematocrit 51.8 % (42.0-52.0); Hemoglobin 16.6 g/dL (14.1-18.0); Lymphocytes # 1.8 K/mm3 (0.7-4.5); Lymphocytes % 20.3 % (10-50); Mean Corpuscular HGB Conc 32.1 g/dL (31.8-35.4); Mean Corpuscular Hemoglobin 31.5 pg (27.0-31.2); Mean Corpuscular Volume 98.2 fl (80-94); Mean Platelet Volume 10.6 fl (7.4-10.4); Monocytes # 0.5 K/mm3 (0.1-1.0); Monocytes % 5.7 % (1.7-9.3); Neutrophils # 5.8 K/mm3 (1.8-7.8); Neutrophils % 67.2 % (37.0-80.0); Platelet Count 254 K/mm3 (142-424); Red Blood Count 5.27 M/mm3 (4.60-6.20); Red Cell Distribution Width 14.4 % (11.5-17.5); White Blood Count 8.6 K/mm3 (4.8-10.8)
[2022-01-24 18:28] LABS: Intact Parathyroid Hormone 150.7 pg/mL (7.5-53.5)
[2022-01-26 13:12] LABS: Lithium (Eskalith(R)) <0.1 mmol/L (0.5-1.2)
[2022-01-26 17:10] LABS: Calcium, Ionized 5.4 mg/dL (4.5-5.6)
== END ==
PROVIDERS: Visit Provider Family Medicine
DX: R53.83 Other fatigue (principal)
CPT/HCPCS: 80178; 82330; 83970; 85025

== ENCOUNTER → 2022-04-04 12:42 | Outpatient (CLI) | payer MEDICAID, SELFPAY ==
[2022-04-04 13:52] LABS: Albumin Level 4.1 g/dl (3.5-5.0); Anion Gap 14.5 mEq/L (5-15); Blood Urea Nitrogen 30 mg/dl (9-20); Calcium 9.6 mg/dl (8.4-10.2); Carbon Dioxide 26 mmol/L (22.0-30.0); Chloride 101 mmol/L (98-107); Estimated Glomerular Filt Rate 60 ml/min (>60); GFR (African American) 73 ML/MIN (>60); Glucose 346 mg/dl (74-100); Phosphorous 4.4 mg/dl (2.5-4.5); Potassium 4.5 mmoL/L (3.5-5.1); Sodium 137 mmol/L (136-145)
[2022-04-04 15:15] LABS: Creatinine,Urine Random 24 mg/dL (Not Estab.)
== END ==
PROVIDERS: Visit Provider Internal Medicine Nephrology
DX: N18.31 Chronic kidney disease, stage 3a (principal); R60.9 Edema, unspecified; I10 Essential (primary) hypertension; E21.3 Hyperparathyroidism, unspecified
CPT/HCPCS: 36415; 80069; 82043; 82570

== ENCOUNTER → 2022-04-04 13:22 | Outpatient (POV) | payer MEDICAID, SELFPAY | PROVIDERS: Visit Provider Internal Medicine Nephrology | DX: Z00.00 Encounter for general adult medical examination without abnormal findings (principal) ==

== ENCOUNTER → 2022-04-26 07:03 | Outpatient (CLI) | payer MEDICARE, MEDICAID, SELFPAY | PROVIDERS: PCP Nurse Practitioner Family; Visit Provider Nurse Practitioner Family | DX: E11.9 Type 2 diabetes mellitus without complications (principal); Z79.4 Long term (current) use of insulin | CPT/HCPCS: 83036 ==

== ENCOUNTER → 2022-08-23 14:00 | Outpatient (CLI) | payer MEDICARE, MEDICAID, SELFPAY ==
[2022-08-23 19:22] LABS: Hemoglobin A1C 12.5 % (4.0-6.0)
== END ==
PROVIDERS: PCP Family Medicine; Visit Provider Family Medicine
DX: E11.51 Type 2 diabetes mellitus with diabetic peripheral angiopathy without gangrene (principal); Z79.4 Long term (current) use of insulin
CPT/HCPCS: 83036

== ENCOUNTER → 2023-03-23 20:13 | Outpatient (CLI) | payer MEDICARE, MEDICAID, SELFPAY ==
[2023-03-23 19:11] LABS: Basophils % 0.4 % (0.1-2.0); Eosinophils # 0.8 K/mm3 (0.0-0.4); Eosinophils % 8.1 % (0.1-12.0); Hematocrit 43.6 % (42.0-52.0); Hemoglobin 13.9 g/dL (14.1-18.0); Lymphocytes # 2.5 K/mm3 (0.7-4.5); Lymphocytes % 24.1 % (10-50); Mean Corpuscular HGB Conc 31.8 g/dL (31.8-35.4); Mean Corpuscular Hemoglobin 30.7 pg (27.0-31.2); Mean Corpuscular Volume 96.6 fl (80-94); Mean Platelet Volume 10.1 fl (7.4-10.4); Monocytes # 0.7 K/mm3 (0.1-1.0); Monocytes % 6.6 % (1.7-9.3); Neutrophils # 6.2 K/mm3 (1.8-7.8); Neutrophils % 60.8 % (37.0-80.0); Platelet Count 308 K/mm3 (142-424); Red Blood Count 4.51 M/mm3 (4.60-6.20); Red Cell Distribution Width 14.3 % (11.5-17.5); White Blood Count 10.3 K/mm3 (4.8-10.8)
[2023-03-23 19:26] LABS: Chloride 101 mmol/L (98-107)
[2023-03-23 19:27] LABS: Potassium 5.1 mmoL/L (3.5-5.1); Sodium 138 mmol/L (136-145)
[2023-03-23 19:29] LABS: Alanine Aminotransferase 27 U/L (12-78); Anion Gap 18.1 mEq/L (5-15); Aspartate Amino Transferase 21 U/L (17-59); Blood Urea Nitrogen 37 mg/dl (9-20); Carbon Dioxide 24 mmol/L (22.0-30.0); Estimated Glomerular Filt Rate 44 ml/min (>60); GFR (African American) 53 ML/MIN (>60)
[2023-03-23 19:30] LABS: Albumin Level 4.1 g/dl (3.5-5.0); Albumin/Globulin Ratio 1.6 (1.1-1.8); Alkaline Phosphatase 76 U/L (38-126); Bilirubin,Total 0.4 mg/dl (0.2-1.3); Calcium 9.6 mg/dl (8.4-10.2); Chol/HDL Ratio 4.1 (1-3.5); Cholesterol 147 mg/dl (140-200); Globulin 2.6 g/dL (1.3-3.2); Glucose 75 mg/dl (74-100); HDL Cholesterol 36 mg/dl (40-60); Total Protein,Serum 6.7 g/dl (6.3-8.2); Triglycerides 315 mg/dl (30-150); VLDL Cholesterol 63 mg/dL (0-40)
[2023-03-23 19:42] LABS: Direct LDL Cholesterol 73.34 mg/dL (100-129)
[2023-03-23 19:43] LABS: Hemoglobin A1C 9.1 % (4.0-6.0)
== END ==
PROVIDERS: PCP Family Medicine; Visit Provider Family Medicine
DX: G62.9 Polyneuropathy, unspecified (principal); I25.10 Atherosclerotic heart disease of native coronary artery without angina pectoris; E11.51 Type 2 diabetes mellitus with diabetic peripheral angiopathy without gangrene; Z79.4 Long term (current) use of insulin
CPT/HCPCS: 80053; 80061; 83036; 85025

== ENCOUNTER → 2023-04-18 16:50 | Outpatient (CLI) | payer MEDICARE, MEDICAID, SELFPAY ==
[2023-04-18 19:08] LABS: Hemoglobin A1C 8.1 % (4.0-6.0)
[2023-04-18 19:25] LABS: Chloride 104 mmol/L (98-107); Sodium 140 mmol/L (136-145)
[2023-04-18 19:26] LABS: Potassium 5.6 mmoL/L (3.5-5.1)
[2023-04-18 19:28] LABS: Alanine Aminotransferase 31 U/L (12-78); Albumin Level 4.1 g/dl (3.5-5.0); Albumin/Globulin Ratio 1.5 (1.1-1.8); Alkaline Phosphatase 80 U/L (38-126); Anion Gap 17.6 mEq/L (5-15); Aspartate Amino Transferase 23 U/L (17-59); Bilirubin,Total 0.3 mg/dl (0.2-1.3); Blood Urea Nitrogen 43 mg/dl (9-20); Carbon Dioxide 24 mmol/L (22.0-30.0); Estimated Glomerular Filt Rate 33 ml/min (>60); GFR (African American) 40 ML/MIN (>60); Globulin 2.7 g/dL (1.3-3.2); Total Protein,Serum 6.8 g/dl (6.3-8.2)
[2023-04-18 19:29] LABS: Calcium 9.1 mg/dl (8.4-10.2); Glucose 70 mg/dl (74-100)
== END ==
LOC: LAB.DROPOF 04-19 06:37
PROVIDERS: PCP Family Medicine; Visit Provider Family Medicine
DX: E11.51 Type 2 diabetes mellitus with diabetic peripheral angiopathy without gangrene (principal); N28.9 Disorder of kidney and ureter, unspecified; Z79.4 Long term (current) use of insulin
CPT/HCPCS: 80053; 83036

== ENCOUNTER → 2023-05-02 23:35 | Outpatient (CLI) | payer MEDICARE, MEDICAID, SELFPAY ==
[2023-05-02 18:52] LABS: Basophils % 0.2 % (0.1-2.0); Eosinophils # 0.9 K/mm3 (0.0-0.4); Eosinophils % 8.9 % (0.1-12.0); Hematocrit 46.2 % (42.0-52.0); Hemoglobin 14.8 g/dL (14.1-18.0); Lymphocytes # 2.4 K/mm3 (0.7-4.5); Lymphocytes % 23.1 % (10-50); Mean Corpuscular HGB Conc 32.1 g/dL (31.8-35.4); Mean Corpuscular Hemoglobin 31.3 pg (27.0-31.2); Mean Corpuscular Volume 97.4 fl (80-94); Mean Platelet Volume 9.8 fl (7.4-10.4); Monocytes # 0.5 K/mm3 (0.1-1.0); Monocytes % 5.1 % (1.7-9.3); Neutrophils # 6.4 K/mm3 (1.8-7.8); Neutrophils % 62.7 % (37.0-80.0); Platelet Count 242 K/mm3 (142-424); Red Blood Count 4.74 M/mm3 (4.60-6.20); Red Cell Distribution Width 14.2 % (11.5-17.5); White Blood Count 10.2 K/mm3 (4.8-10.8)
[2023-05-02 19:11] LABS: Alanine Aminotransferase 29 U/L (12-78); Albumin Level 3.9 g/dl (3.5-5.0); Albumin/Globulin Ratio 1.5 (1.1-1.8); Alkaline Phosphatase 81 U/L (38-126); Anion Gap 15.8 mEq/L (5-15); Aspartate Amino Transferase 26 U/L (17-59); Bilirubin,Total 0.4 mg/dl (0.2-1.3); Blood Urea Nitrogen 18 mg/dl (9-20); Calcium 9.4 mg/dl (8.4-10.2); Carbon Dioxide 27 mmol/L (22.0-30.0); Chloride 105 mmol/L (98-107); Chol/HDL Ratio 4.6 (1-3.5); Cholesterol 165 mg/dl (140-200); Estimated Glomerular Filt Rate 66 ml/min (>60); GFR (African American) 80 ML/MIN (>60); Globulin 2.6 g/dL (1.3-3.2); Glucose 83 mg/dl (74-100); HDL Cholesterol 36 mg/dl (40-60); Potassium 4.8 mmoL/L (3.5-5.1); Sodium 143 mmol/L (136-145); Total Protein,Serum 6.5 g/dl (6.3-8.2); Triglycerides 381 mg/dl (30-150); VLDL Cholesterol 76 mg/dL (0-40)
[2023-05-02 19:24] LABS: Direct LDL Cholesterol 72.45 mg/dL (100-129)
[2023-05-02 19:30] LABS: Hemoglobin A1C 7.8 % (4.0-6.0)
== END ==
LOC: LAB.DROPOF 23:36
PROVIDERS: PCP Family Medicine; Visit Provider Family Medicine
DX: I25.10 Atherosclerotic heart disease of native coronary artery without angina pectoris (principal); E11.51 Type 2 diabetes mellitus with diabetic peripheral angiopathy without gangrene; Z79.4 Long term (current) use of insulin
CPT/HCPCS: 80053; 80061; 83036; 85025

== ENCOUNTER → 2023-05-16 14:20 | Outpatient (CLI) | payer MEDICARE, MEDICAID, SELFPAY ==
[2023-05-16 18:49] LABS: Alanine Aminotransferase 33 U/L (12-78); Albumin Level 3.7 g/dl (3.5-5.0); Albumin/Globulin Ratio 1.4 (1.1-1.8); Alkaline Phosphatase 85 U/L (38-126); Anion Gap 16.3 mEq/L (5-15); Aspartate Amino Transferase 25 U/L (17-59); Bilirubin,Total 0.3 mg/dl (0.2-1.3); Blood Urea Nitrogen 23 mg/dl (9-20); Calcium 8.5 mg/dl (8.4-10.2); Carbon Dioxide 24 mmol/L (22.0-30.0); Chloride 106 mmol/L (98-107); Estimated Glomerular Filt Rate 47 ml/min (>60); GFR (African American) 57 ML/MIN (>60); Globulin 2.6 g/dL (1.3-3.2); Glucose 134 mg/dl (74-100); Potassium 4.3 mmoL/L (3.5-5.1); Sodium 142 mmol/L (136-145); Total Protein,Serum 6.3 g/dl (6.3-8.2)
[2023-05-16 19:20] LABS: Thyroid Stimulating Hormone 0.67 uIU/mL (0.465-4.68)
[2023-05-25 00:10] LABS: Free Testosterone (Direct) 4.4 pg/mL (6.8-21.5); Testosterone, Total, LC/MS 232.9 ng/dL (264.0-916.0)
== END ==
PROVIDERS: PCP Family Medicine; Visit Provider Family Medicine
DX: E11.51 Type 2 diabetes mellitus with diabetic peripheral angiopathy without gangrene; Z79.4 Long term (current) use of insulin
CPT/HCPCS: 80053; 84443

== ENCOUNTER → 2023-07-10 23:00 | Outpatient (CLI) | payer MEDICARE, MEDICAID, SELFPAY ==
[2023-07-10 18:46] LABS: Alanine Aminotransferase 20 U/L (12-78); Albumin Level 3.9 g/dl (3.5-5.0); Albumin/Globulin Ratio 1.4 (1.1-1.8); Alkaline Phosphatase 86 U/L (38-126); Anion Gap 12.5 mEq/L (5-15); Aspartate Amino Transferase 18 U/L (17-59); Bilirubin,Total 0.3 mg/dl (0.2-1.3); Blood Urea Nitrogen 19 mg/dl (9-20); Calcium 9.1 mg/dl (8.4-10.2); Carbon Dioxide 32 mmol/L (22.0-30.0); Chloride 106 mmol/L (98-107); Estimated Glomerular Filt Rate 55 ml/min (>60); GFR (African American) 67 ML/MIN (>60); Globulin 2.8 g/dL (1.3-3.2); Glucose 64 mg/dl (74-100); Potassium 4.5 mmoL/L (3.5-5.1); Sodium 146 mmol/L (136-145); Total Protein,Serum 6.7 g/dl (6.3-8.2)
[2023-07-10 19:48] LABS: Hemoglobin A1C 7.4 % (4.0-6.0)
== END ==
PROVIDERS: PCP Family Medicine; Visit Provider Family Medicine
DX: E11.21 Type 2 diabetes mellitus with diabetic nephropathy (principal); E11.51 Type 2 diabetes mellitus with diabetic peripheral angiopathy without gangrene; Z79.4 Long term (current) use of insulin
CPT/HCPCS: 80053; 83036

== ENCOUNTER → 2023-07-17 09:57 | Outpatient (CLI) | payer MEDICARE, MEDICAID, SELFPAY ==
--- NOTE | 2023-07-17 09:58 | NM_ITS ---
FINAL REPORT TECHNIQUE: Sequential anterior images were obtained after the ingestion of eggs radiolabeled with mCi technetium 99M sulfur colloid. CLINICAL HISTORY: gastroparesis COMPARISON: None FINDINGS: GASTRIC EMPTYING SCAN Static images show normal emptying of the stomach into the small bowel. Based on the time activity curve, the estimated half-emptying time is 181 minutes. IMPRESSION: Abnormal prolonged gastric emptying time of 181 minutes which may be due to gastroparesis or partial outlet obstruction. Reviewed, Interpreted and Dictated by Devon Rutherford MD Transcribed by Nicole Daniels Authenticated and [facility]
== END ==
PROVIDERS: PCP Family Medicine; Visit Provider Family Medicine
DX: K31.84 Gastroparesis (principal)
CPT/HCPCS: 78264; A9541

== ENCOUNTER → 2023-08-08 10:34 | Outpatient (CLI) | payer MEDICARE, MEDICAID, SELFPAY ==
[2023-08-08 11:47] LABS: Basophils # 0.1 K/mm3 (0-0.2); Basophils % 1.1 % (0.1-2.0); Eosinophils # 0.8 K/mm3 (0.0-0.4); Eosinophils % 7.8 % (0.1-12.0); Hemoglobin 16.7 g/dL (14.1-18.0); Lymphocytes % 19.2 % (10-50); Mean Corpuscular Volume 93.6 fl (80-94); Mean Platelet Volume 9.3 fl (7.4-10.4); Monocytes # 0.6 K/mm3 (0.1-1.0); Monocytes % 6.1 % (1.7-9.3); Neutrophils # 6.8 K/mm3 (1.8-7.8); Neutrophils % 65.8 % (37.0-80.0); Platelet Count 333 K/mm3 (142-424); Red Blood Count 5.77 M/mm3 (4.60-6.20); Red Cell Distribution Width 14.7 % (11.5-17.5); White Blood Count 10.3 K/mm3 (4.8-10.8)
[2023-08-08 12:02] LABS: Chloride 106 mmol/L (98-107); Potassium 4.8 mmoL/L (3.5-5.1); Sodium 140 mmol/L (136-145)
[2023-08-08 12:05] LABS: Alanine Aminotransferase 30 U/L (12-78); Albumin Level 3.7 g/dl (3.5-5.0); Albumin/Globulin Ratio 1.2 (1.1-1.8); Alkaline Phosphatase 95 U/L (38-126); Anion Gap 12.8 mEq/L (5-15); Aspartate Amino Transferase 24 U/L (17-59); Bilirubin,Total 0.5 mg/dl (0.2-1.3); Blood Urea Nitrogen 33 mg/dl (9-20); Carbon Dioxide 26 mmol/L (22.0-30.0); Cholesterol 222 mg/dl (140-200); Estimated Glomerular Filt Rate 47 ml/min (>60); GFR (African American) 57 ML/MIN (>60); Globulin 3.1 g/dL (1.3-3.2); Total Protein,Serum 6.8 g/dl (6.3-8.2)
[2023-08-08 12:06] LABS: Calcium 9.3 mg/dl (8.4-10.2); Chol/HDL Ratio 7.4 (1-3.5); Glucose 85 mg/dl (74-100); HDL Cholesterol 30 mg/dl (40-60)
[2023-08-08 17:39] LABS: Prostate Specific Ag Screen 0.5 ng/ml (0.0-4.0)
== END ==
PROVIDERS: PCP Family Medicine; Visit Provider Family Medicine
DX: E11.51 Type 2 diabetes mellitus with diabetic peripheral angiopathy without gangrene (principal); I25.10 Atherosclerotic heart disease of native coronary artery without angina pectoris; E78.2 Mixed hyperlipidemia; Z12.5 Encounter for screening for malignant neoplasm of prostate; Z79.4 Long term (current) use of insulin
CPT/HCPCS: 36415; 80053; 80061; 83036; 85025; G0103

== ENCOUNTER → 2023-09-01 07:02 | Outpatient (CLI) | payer MEDICARE, MEDICAID, SELFPAY ==
--- NOTE | 2023-09-01 07:09 | FL_ITS ---
FINAL REPORT CLINICAL HISTORY: . abd pain DAP 8078.78 fluoro time 1:07 FINDINGS: UPPER GI WITH SBFT HISTORY: Acute generalized abdominal pain. Anemia. PROCEDURE: The patient ingested barium. Effervescent crystals were also administered. Spot and overhead films were obtained. Additional barium was administered for a SBFT. 22 radiographs were obtained. Fluoro time: 1 minute 7 seconds DAP: 8078.78 uGy.m2 FINDINGS: UGI: The esophagus is normal. There is a small sliding typehiatal hernia. There is no gastroesophageal reflux. Peristalsis is normal. The rugal fold pattern of the stomach is normal. There is a small duodenal diverticula. SBFT: The chain saw driver film is normal. There is no evidence of obstruction. The mucosal fold pattern is normal. The terminal ilium is normal. IMPRESSION: Small sliding type hiatal hernia. Nonspecific mild rugal fold thickening of the stomach. Small duodenal diverticulum. Normal small bowel follow-through. Films reviewed , interpreted and dictated by Dr. Sin. Transcribed by Marshall Roberts PA-C. Reviewed, Interpreted and Dictated by Judah Sin III, MD Transcribed by MARVA Macias Authenticated and [facility]
== END ==
PROVIDERS: PCP Family Medicine; Visit Provider Surgery
DX: K92.2 Gastrointestinal hemorrhage, unspecified (principal)
CPT/HCPCS: 74246; 74248

== ENCOUNTER 2024-01-25 10:12 | Day surgery (SDC) | payer MEDICARE, MEDICAID, SELFPAY ==
[2024-01-25] MEDS: LACTATED RINGERS 1000ML 1,000 ML 25 ML IV (10:36)
[2024-01-25 10:37] VITALS: BP 143/90; PULSE 73; RESP 20; TEMP 36.3; O2SAT 94; BMI 37.6
[2024-01-25 11:47] VITALS: O2SAT 97
--- NOTE | 2024-01-25 12:02 | HMH.SCOPE ---
Procedure: Date: 01/25/24 Patient Date of :: 1980 Procedure Performed:: Diagnostic EGD Indications:: N/V abdominal pain Performing Provider:: Lisa Kellogg MD Referring Provider:: Radha Kellogg APRN Sedation:: Propofol Procedure:: The gastroscope was gently passed through the incisoral orifice into the oral cavity and under direct visualization the esophagus was intubated. The endoscope was passed down the esophagus, through the stomach, and into the duodenum. Color, texture, mucosa, and anatomy of the esophagus, stomach, and duodenum were carefully examined with the scope. Findings:: Oropharynx: normal Esophagus: normal EG Junction: intact at 40 cm Cardia: normal Fundus: normal Body: normal Antrum: normal Duodenal bulb: normal Duodenum (second and third portion): normal Impression: Normal EGD, no evidence of outlet obstruction Symptoms most likely related to Ozempic type medications Recommendations:: F/U GI Clinic Complications:: None Estimated blood obtained (mL): 0 Colonoscopy Component Colonoscopy Component Was a colonoscopy performed during today's procedure?: No
[2024-01-25 12:03] VITALS: BP 100/63; PULSE 74; RESP 18; TEMP 36.1; O2SAT 90
--- NOTE | 2024-01-25 12:04 | HMH.SCOPE ---
Procedure: Date: 01/25/24 Patient Date of :: 1980 Procedure Performed:: Diagnostic colonoscopy Indications:: Chronic constipation, reports of melena Performing Provider:: Lisa Kellogg MD Referring Provider:: Radha Kellogg APRN Sedation:: Propofol Procedure:: After placing the patient in the left lateral decubitus position, the colonoscopy was gently inserted into the rectum and under direct visualization advanced to the cecum which was identified by transillumination in the right lower quadrant, identification of the ileocecal valve, appendiceal orifice, and cecal strap. Color, texture, mucosa, and anatomy of the colon were carefully examined with the scope. Findings:: Anal canal: normal Rectum: normal Sigmoid colon: normal without polyps or inflammatory changes Descending colon: normal without polyps or inflammatory changes Splenic flexure: normal Transverse colon: normal without polyps or inflammatory changes Hepatic flexure: normal Ascending colon: normal without polyps or inflammatory changes Cecum: normal Terminal ileum: not visualized Impression: Normal colonoscopy Recommendations:: Follow up examination in about TEN years or so, sooner if clinically indicated. F/U with GI Clinic Complications:: None Estimated blood obtained (mL): 0 Colonoscopy Component Colonoscopy Component Was a colonoscopy performed during today's procedure?: Yes Recommended follow up colonoscopy of at least 10 years?: Yes
[2024-01-25 12:13] VITALS: BP 103/71; PULSE 78; RESP 16; O2SAT 97
[2024-01-25 12:23] VITALS: BP 103/69; PULSE 77; RESP 16; O2SAT 95
[2024-01-25 12:28] VITALS: BP 117/75; PULSE 78; RESP 16; TEMP 36.6; O2SAT 98
--- NOTE | 2024-01-25 13:30 | P.PNANES_ITS ---
[facility] Disclaimer: The information contained in this section may have been updated after the patient was seen, as this information can be updated by other users. Medical History Hyperglycemia Renal insufficiency Diabetes GERD (gastroesophageal reflux disease) Gastritis HLD (hyperlipidemia) HHD (hypertensive heart disease) Cardiac pacemaker in situ Surgical History AICD (automatic cardioverter/defibrillator) present History of permanent cardiac pacemaker placement Hx of heart bypass surgery Family History Other Family history of diabetes mellitus type II Family history of hypertension Family history of myocardial infarction Social History Smoking Status: Current some day smoker tobacco type: cigarettes packs per day: 1 alcohol intake: never substance use type: denies use current occupational status: disabled Travel in the last 8 weeks: None household members: spouse housing: house current occupational exposures/hazards: No caffeine: Yes [facility] Anesthesia Checklist Patient Identification Patient Identification: Verbal (Name & ) Structural Data Admitted From: Home Planned Operative Procedure/s: egd,colonoscopy Consent for Planned Operative Procedure(s) Verified: Yes Additional verifications Anesthesia Reactions: No Hx Blood Transfusions: No Blood Transfusion Reaction: Yes Airway Assessment Mallampati Score:: Class II C-Spine Mobility Assessed: Yes TMJ Mobility Assessed: Yes Dentition: Edentulous Neurological Assessment Level of Consciousness: Awake, Alert and Appropriate Anesthesia Plan Anesthesia Risk discussed: Yes Anesthesia Plan: Verified ASA Class: III Anesthesia Type: MAC
[2024-01-26 10:36] LABS: POC Glucose,Bedside 125 (70-110)
== END 2024-01-25 12:33 | disposition home or self-care (01) ==
PROVIDERS: PCP Family Medicine; Visit Provider Internal Medicine Gastroenterology
PROC: 0DJ08ZZ Inspection of Upper Intestinal Tract, Via Natural or Artificial Opening Endoscopic (ICD-10-PCS; CPT 43235; principal; 2024-01-25 11:30)
DX: R10.9 Unspecified abdominal pain (principal); R11.2 Nausea with vomiting, unspecified; K59.09 Other constipation; K92.1 Melena; E11.9 Type 2 diabetes mellitus without complications
CPT/HCPCS: 43235; 45378; 82962; J2704

== ENCOUNTER 2024-03-07 11:08 | Outpatient (CLI) | payer MEDICARE, MEDICAID, SELFPAY ==
[2024-03-07 19:01] LABS: Alanine Aminotransferase 21 U/L (12-78); Albumin Level 3.6 g/dl (3.5-5.0); Albumin/Globulin Ratio 1.3 (1.1-1.8); Alkaline Phosphatase 89 U/L (38-126); Anion Gap 10.5 mEq/L (5-15); Aspartate Amino Transferase 20 U/L (17-59); Bilirubin,Total 0.6 mg/dl (0.2-1.3); Blood Urea Nitrogen 25 mg/dl (9-20); Calcium 9.4 mg/dl (8.4-10.2); Carbon Dioxide 29 mmol/L (22.0-30.0); Chloride 107 mmol/L (98-107); Estimated Glomerular Filt Rate 51 ml/min (>60); GFR (African American) 61 ML/MIN (>60); Globulin 2.7 g/dL (1.3-3.2); Glucose 84 mg/dl (74-100); Potassium 4.5 mmoL/L (3.5-5.1); Sodium 142 mmol/L (136-145); Total Protein,Serum 6.3 g/dl (6.3-8.2)
== END 2024-03-07 23:59 | disposition home or self-care (01) ==
LOC: LAB.DROPOF 03-08 11:09
PROVIDERS: PCP Family Medicine; Visit Provider Family Medicine
DX: R06.02 Shortness of breath (principal); E11.51 Type 2 diabetes mellitus with diabetic peripheral angiopathy without gangrene; Z79.4 Long term (current) use of insulin
CPT/HCPCS: 80053

== ENCOUNTER 2024-05-01 10:31 | Outpatient (CLI) | payer MEDICARE, MEDICAID, SELFPAY ==
[2024-05-01 19:36] LABS: Alanine Aminotransferase 22 U/L (12-78); Albumin Level 3.8 g/dl (3.5-5.0); Albumin/Globulin Ratio 1.4 (1.1-1.8); Alkaline Phosphatase 105 U/L (38-126); Anion Gap 14.9 mEq/L (5-15); Aspartate Amino Transferase 18 U/L (17-59); Bilirubin,Total 0.4 mg/dl (0.2-1.3); Blood Urea Nitrogen 36 mg/dl (9-20); Calcium 9.3 mg/dl (8.4-10.2); Carbon Dioxide 28 mmol/L (22.0-30.0); Chloride 105 mmol/L (98-107); Estimated Glomerular Filt Rate 41 ml/min (>60); GFR (African American) 50 ML/MIN (>60); Globulin 2.8 g/dL (1.3-3.2); Glucose 89 mg/dl (74-100); Potassium 4.9 mmoL/L (3.5-5.1); Sodium 143 mmol/L (136-145); Total Protein,Serum 6.6 g/dl (6.3-8.2)
== END 2024-05-01 23:59 | disposition home or self-care (01) ==
LOC: LAB.DROPOF 05-02 10:31
PROVIDERS: PCP Family Medicine; Visit Provider Family Medicine
DX: N18.32 Chronic kidney disease, stage 3b (principal); E11.51 Type 2 diabetes mellitus with diabetic peripheral angiopathy without gangrene; Z79.4 Long term (current) use of insulin; Z79.84 Long term (current) use of oral hypoglycemic drugs; E11.22 Type 2 diabetes mellitus with diabetic chronic kidney disease
CPT/HCPCS: 80053

== ENCOUNTER 2024-08-29 08:42 | Outpatient (CLI) | payer MEDICARE, SELFPAY ==
[2024-08-29 19:05] LABS: Alanine Aminotransferase 29 U/L (12-78); Albumin/Globulin Ratio 1.4 (1.1-1.8); Alkaline Phosphatase 130 U/L (38-126); Anion Gap 7.9 mEq/L (5-15); Aspartate Amino Transferase 23 U/L (17-59); Bilirubin,Total 0.7 mg/dl (0.2-1.3); Blood Urea Nitrogen 35 mg/dl (9-20); Calcium 9.4 mg/dl (8.4-10.2); Carbon Dioxide 27 mmol/L (22.0-30.0); Chloride 106 mmol/L (98-107); Chol/HDL Ratio 7.3 (1-3.5); Cholesterol 205 mg/dl (140-200); Estimated Glomerular Filt Rate 51 ml/min (>60); GFR (African American) 61 ML/MIN (>60); Globulin 2.9 g/dL (1.3-3.2); Glucose 254 mg/dl (74-100); HDL Cholesterol 28 mg/dl (40-60); Potassium 4.9 mmoL/L (3.5-5.1); Sodium 136 mmol/L (136-145); Total Protein,Serum 6.9 g/dl (6.3-8.2)
[2024-08-29 19:16] LABS: Direct LDL Cholesterol 61.69 mg/dL (100-129)
== END 2024-08-29 23:59 | disposition home or self-care (01) ==
LOC: LAB.DROPOF 09-03 08:43
PROVIDERS: PCP Family Medicine; Visit Provider Family Medicine
DX: E08.21 Diabetes mellitus due to underlying condition with diabetic nephropathy (principal); E78.2 Mixed hyperlipidemia; E78.5 Hyperlipidemia, unspecified
CPT/HCPCS: 80053; 80061

== ENCOUNTER 2024-09-17 11:45 | Outpatient (CLI) | payer MEDICARE, MEDICAID, SELFPAY ==
[2024-09-17 19:58] LABS: T4 (Thyroxine) 9.1 ug/dl (5.53-11.0)
[2024-09-17 20:11] LABS: Thyroid Stimulating Hormone 0.76 uIU/mL (0.465-4.68)
[2024-09-17 20:20] LABS: 25-OH Vitamin D, Total 16.9 ng/mL (30-100)
== END 2024-09-17 23:59 | disposition home or self-care (01) ==
LOC: LAB.DROPOF 09-18 13:13
PROVIDERS: PCP Nurse Practitioner Acute Care; Visit Provider Nurse Practitioner Acute Care
DX: E07.9 Disorder of thyroid, unspecified (principal); E55.9 Vitamin D deficiency, unspecified
CPT/HCPCS: 82306; 84436; 84443

== ENCOUNTER 2025-01-06 11:19 | Outpatient (CLI) | payer MEDICARE, MEDICAID, SELFPAY ==
[2025-01-06 19:24] LABS: Creatinine,Urine Random 31 mg/dL (Not Estab.); Microalbumin < 6.000 mg/L (0-16.7)
== END 2025-01-06 23:59 | disposition home or self-care (01) ==
LOC: LAB.DROPOF 01-08 10:46
PROVIDERS: PCP Family Medicine; Visit Provider Family Medicine
DX: E11.51 Type 2 diabetes mellitus with diabetic peripheral angiopathy without gangrene (principal)
CPT/HCPCS: 82043; 82570

== ENCOUNTER 2025-06-04 16:32 | Outpatient (CLI) | payer MEDICARE, MEDICAID, SELFPAY ==
[2025-06-04 20:02] LABS: Hematocrit 54.8 % (42.0-52.0); Hemoglobin 17.5 g/dL (14.1-18.0); Immature Granulocytes % 0.6 %; Mean Corpuscular HGB Conc 31.9 g/dL (31.8-35.4); Mean Corpuscular Hemoglobin 30.7 pg (27.0-31.2); Mean Corpuscular Volume 96.1 fl (80-94); Nucleated Red Blood Cells % 0 %; Platelet Count 219 K/mm3 (142-424); Red Blood Count 5.70 M/mm3 (4.60-6.20); Red Cell Distribution Width-SD 53.3 fL; White Blood Count 8.6 K/mm3 (4.8-10.8)
[2025-06-04 20:15] LABS: Alanine Aminotransferase 23 U/L (12-78); Albumin Level 3.7 g/dl (3.5-5.0); Albumin/Globulin Ratio 1.4 (1.1-1.8); Alkaline Phosphatase 100 U/L (38-126); Anion Gap 10.8 mEq/L (5-15); Aspartate Amino Transferase 22 U/L (17-59); Bilirubin,Total 0.5 mg/dl (0.2-1.3); Blood Urea Nitrogen 20 mg/dl (9-20); Calcium 8.8 mg/dl (8.4-10.2); Carbon Dioxide 25 mmol/L (22.0-30.0); Chloride 108 mmol/L (98-107); Cholesterol 122 mg/dl (140-200); Creatinine,Serum 1.40 mg/dl (0.66-1.25); Estimated Glomerular Filt Rate 55 ml/min (>60); GFR (African American) 66 ML/MIN (>60); Globulin 2.6 g/dL (1.3-3.2); Glucose 207 mg/dl (74-100); HDL Cholesterol 24 mg/dl (40-60); Potassium 4.8 mmoL/L (3.5-5.1); Sodium 139 mmol/L (136-145); Total Protein,Serum 6.3 g/dl (6.3-8.2)
[2025-06-04 20:19] LABS: Triglycerides 438 mg/dl (30-150)
[2025-06-04 21:04] LABS: Hepatitis C Ab Qual. W/ RFX NEGATIVE (Negative)
--- OUTSIDE RECORDS SUMMARY | 2025-06-05 09:49 | XMS_ITS | Encounter Summary ---
Author Organization [place] [address] Care Team Providers Care Educational Program Assistant Name Role Phone Umm Grimes APRN Primary Care Provider [phone] David Stockton MD Primary Care Provider [phone] Encounter Details Date Type Department Care Team (Late st Contact Info) Description 12/28/2018 Orders Only [facility] [address] [facility] [address] [place] [address] Ceci Palumbo MD [address] [place], [place] [id number] Social History Tobacco Use Types Packs/Day Years Used Date Smoking Tobacco: Every Day Cigarettes 0.5 33.9 Started: 07/21/1991 Smokeless Tobacco: Never Comments:using patches and c utting back Alcohol Use Standard Drinks/Week Comments No 0 (1 standard drink = 0.6 oz pur e alcohol) Sexually Active Control Partners Comments Not Currently Female Sex and Gender Information Value Date Recorded Sex Assigned at Not on file Legal Sex Male 9:04 PM EDT Gender Identity Not on file Sexual Orientation Not on file documented as of this encounter Functional Status * Is the person deaf or does he/she have serious difficulty hearing? Answer Date of Assessment Author No 07/31/2018 11:04 AM EDT Viki Flanagan APRN * Is the person blind or does he/she have serious difficulty seeing even when wearing glasses? Answer Date of Assessment Author No 07/31/2018 11:04 AM EDT Viki Flanagan APRN * Does this person have serious difficulty walking or climbing stairs? Answer Date of Assessment Author No 07/31/2018 11:04 AM EDT Viki Flanagan APRN * Does this person have difficulty dressing or bathing? Answer Date of Assessment Author No 07/31/2018 11:04 AM EDT Viki Flanagan APRN * Because of a physical, mental or emotional condition, does this person have difficulty doing errands alone such as visiting a doctor's office or shopping? Answer Date of Assessment Author No 07/31/2018 11:04 AM EDT Viki Flanagan APRN documented as of this encounter Mental Status * Because of a physical, mental or emotional condition, does this person have serious difficulty concentrating, remembering or making decisions? Answer Entry Date Author No 07/31/2018 11:04 AM EDT Viki Flanagan APRN documented in this encounter Plan of Treatment Upcoming Encounters Date Type Department Care Team (Late st Contact Info) Description 08/07/2025 1:00 PM EDT Office Visit [facility] [address] [place] [id number] 08/07/2025 1:30 PM EDT Office Visit [facility] [address] [place] [phone] Josselin Ramos APRN [address] [place] [id number] documented as of this encounter Goals Goal Patient Goal Type Associated Problems Recent Progress Patient-Stated? Author Blood Pressure < 140/90 Blood Pressure 100/70(2023 1:56 PM EDT) No Breann Pickard, JORDANA BMI (Calculated) < 30 General 38.6(03/04/20 8:56 AM EDT) No Breann Pickard, RMA Maintain a healthy diet, exercise regularly and maintain an ideal body weight General No Delaney Zhang, CHEVY Stay Tobacco Free Lifestyle No Delaney Zhang RMA HEMOGLOBIN A1C < 7.0 Result Component 8.1( 8 12:00 PM EDT) No Breann Pickard RMA documented as of this encounter Procedures Procedure Name Priority Date/Time Associated Diagnosis Comments PACEART REPORT Routine 12/28/2018 12:50 AM EST documented in this encounter Results * PACEART REPORT (12/28/2018 12:50 AM EST) 12/28/2018 12:5 0 AM EST Narrative [facility] - 12/27/2018 7:51 PM EST IMPLANT REPORT us Ceci Palumbo MD [facility] CARDIAC CATH ORDERABLES F inal Result [facility] [address] [place] [address] documented in this encounter Visit Diagnoses Not on filedocumented in this encounter Additional Health Concerns Assessment Noted Time PHQ-9 Depression Total Score: 21 018 8:28 AM EDT PHQ-2 Depression Total Score: 6 07/19/20 18 8:28 AM EDT documented as of this encounter Care Teams Educational Program Assistant Relationship Specialty Start Date End Date Umm Grimes APRN [address] [place] [id number] PCP - General Nurse Practitioner-Family 07/19/18 David Stockton MD [address] [phone] PCP - General Family Medicine 09/12/19 documented as of this encounter
--- OUTSIDE RECORDS SUMMARY | 2025-06-05 09:49 | XMS_ITS | Clinical Summary ---
Author Organization [facility] Address [address] [address] Care Team Providers Care Drainlayer Name Role Phone David Stockton MD Primary Care Provider [phone] Allergies Active Allergy Reactions Criticality Noted Date Comments Codeine Other - please document in the comment field Low 10/29/2010 Penicillin G Anaphylaxis High 10/29/2010 Sulfa Drugs Nausea 07/19/2018 Sulfamethoxazole-Trim ethoprim Other - please document in the comment field Low 10/29/2010 upset stomach- has to be crushed in applesauce Medications albuterol 108 (90 Base) MCG/ACT inhaler Inhale 2 puffs every 6 (six) hours if needed. Active aspirin 81 MG EC tablet Take 81 mg by mouth 1 (one) time each day. Active atorvastatin (Lipitor) 80 MG tablet Take 80 mg by mouth 1 (one) time each day. Active carvedilol (Coreg) 6.25 MG tablet Take by mouth 2 (two) times a day with meals. Active fluticasone-trinidad anterol (Breo Elipta) 200-25 MCG/INH inhaler Inhale. Acti ve furosemide (Lasix) 40 MG tablet Take by mouth 2 (two) times a day. Active HYDROcodone-rodri taminophen (Hycet) 7.5-325 MG/15ML solution Take by mouth every 6 (six) hours if needed. Active insulin aspart (NovoLOG) 100 UNIT/ML injection Inject under the skin 3 (three) times a day before meals. Active insulin glargine (Lantus SoloStar, Basaglar) 100 UNIT/ML injection pen Inject under the skin every night. Active insulin glargine (Toujeo Solostar, 1 unit dial,) 300 UNIT/ML injection pen (1 UNIT DIAL) Inject under the skin every night. Active insulin lispro (HumaLOG) 100 UNIT/ML injection Inject under the skin 3 (three) times a day with meals. Active lisinopril 5 MG tablet Take by mouth 1 (one) time each day. Active lithium 300 MG tablet Take 300 mg by mouth every night. Active pantoprazole (ProtoNix) 40 MG EC tablet Take 40 mg by mouth 1 (one) time each day before breakfast. Do not crush, chew, or split. Active rivaroxaban (Xarelto) 2.5 MG tablet Take by mouth 2 (two) times a day. Active sildenafil (Viagra) 100 MG tablet Take 100 mg by mouth 1 (one) time each day if needed. Active testosterone cypionate (Depo-Testoster one) 200 MG/ML injection Inject into the muscle every 14 (fourteen) days. Active venlafaxine XR (Effoxor-XR) 150 MG 24 hr capsule Take 150 mg by mouth 1 (one) time each day. Do not crush or chew. Active buPROPion XL (Wellbutrin XL) 150 MG 24 hr tablet Take 150 mg by mouth 1 (one) time each day. Do not crush, chew, or split. Active ergocalciferol (Vitamin D-2) 1.25 MG (78944 UT) capsule Take 50,000 Units by mouth 1 (one) time per week. Active LORazepam (Ativan) 1 MG tablet Take 1 mg by mouth every 6 (six) hours if needed for anxiety. Active pentoxifylline (Trental) 400 MG ER tablet Take by mouth 3 (three) times a day with meals. Do not crush, chew, or split. Active spironolactone (Aldactone) 50 MG tablet Take 50 mg by mouth 2 (two) times a day. Active Vortioxetine HBr (Trintellix) 10 MG tablet Take 10 mg by mouth 1 (one) time each day. Active Continuous Blood Gluc Sensor (Dexcom G6 Sensor) [facility] [place] as directed TO test blood glucose 03/24/2022 Active nicotine (Nicoderm CQ) 21 MG/24HR patch Apply ONE PATCH daily 03/24/2022 Active Immunizations Immunization Administration Dates Next Due DT (pediatric) 10/04/2010 Influenza, Unspecified 07/24/2018,10/31/2010 Influenza, injectable, quadrivalent, preservativ e free 10/01/2021,09/22/2020 Pneumococcal Polysaccharide PPV23 11/20/2018 Family History Medical History Relation Name Comments Heart disease Father Hypertension Father Diabetes Mother Hyperlipidemia Mother Hypertension Mother Relation Name Status Comments Father Mother Social History Tobacco Use Types Packs/Day Years Used Date Smoking Tobacco: Every Day Smokeless Tobacco: Never Alcohol Use Standard Drinks/Week Comments Never 0 (1 standard drink = 0.6 oz pur e alcohol) Sex and Gender Information Value Date Recorded Sex Assigned at Not on file Legal Sex Male 6:19 PM EDT Gender Identity Not on file Sexual Orientation Not on file Last Filed Vital Signs Vital Sign Reading Time Taken Comments Blood Pressure 127/82 02/23/2023 7:11 PM EDT Pulse 77 02/23/2023 7:11 PM EDT Temperature 36.6 C (97.8 F) 02/23/2023 7:11 PM EDT Respiratory Rate 16 02/23/2023 7:11 PM EDT Oxygen Saturation 99% 02/23/2023 7:11 PM EDT Inhaled Oxygen Concentration - - Weight 120 kg (264 lb) 04/04/2022 1:33 PM EDT Height - - Body Mass Index - - Plan of Treatment Health Maintenance Due Date Last Done Comments [facility]-Depression Screening 1980 [facility]-HIV Screening 1980 [facility]-Hepatitis C Screening 1980 [facility]-Medicare Annual Wellness (AWV) 1980 [facility]-Infant/Child/Adol SDOH Screenings 1978 [facility]- SDOH Screenings 1996 [facility]-Adult SDOH Screenings 1996 [facility]-Hepatitis B Vaccines (1 of 3 - 19+ 3-dose series) 1997 [facility]-DTaP,Tdap,and Td Vaccines (2 - Tdap) 10/04/2020 10/04/2010 CT Colonography 2023 Colonoscopy 2023 FIT-DNA 2023 FIT 2023 FOBT 2023 Sigmoidoscopy 2023 [facility]-Colorectal Cancer Screening 2023 [id number] Vaccine (2023- season) 2024 [facility]-Influenza Vaccine (#1) 07/21/202509/22, 10/01/2021, 09/22/2020, Additional history exists [facility]-Zoster Vaccines (1 of 2) 2028 [facility]-Pneumococcal Vaccine: Pediatrics (0 to 5 Years) and At-Risk Patients (6 to 49 Years) Aged Out 11/20/2018 No longer eligible based on patient's age to complete this topic HPV Vaccines Aged Out No longer eligi ble based on patient's age to complete this topic [facility]-HIB Vaccines Aged Out No longer e ligible based on patient's age to complete this topic [facility]-Hepatitis A Vaccines Aged Out No longer eligible based on patient's age to complete this topic [facility]-IPV Vaccines Aged Out No longer e ligible based on patient's age to complete this topic [facility]-Rotavirus Vaccines Aged Out No lo nger eligible based on patient's age to complete this topic Additional Health Concerns Infection Onset Date 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
--- OUTSIDE RECORDS SUMMARY | 2025-06-05 09:49 | XMS_ITS | Clinical Summary ---
Author Organization [facility] Address [address] [place] [address] Phone Care Team Providers Care Tug Boat Captain Name Role Phone David Stockton MD Primary Care Provider [phone] Allergies Active Allergy Reactions Criticality Noted Date Comments Codeine 10/04/2010 Penicillins 10/04/2010 Sulfa (Sulfonamide Antibiotics) Nausea Only Medications albuterol (PROVENTIL HFA;VENTOLIN HFA) 90 mcg/actuation Inhl HFA Aerosol InhalerIndications: Chronic obstructive pulmonary disease, unspecified COPD type ([facility]) Inhale 2 Puffs into the lungs every 4 hours as needed for Wheezing. 1 Inhaler 2 07/19/20 18 Active Blood-Glucose Meter Misc KitIndications:Unco ntrolled type 2 diabetes mellitus with hyperosmolarity without coma, without long-term current use of insulin (HCC) Check blood sugars 2 times a day at varying times 1 Kit 08/09/20 18 Active polyethylene glycol (GLYCOLAX) 17 gram/dose Oral PowderIndications:C onstipation, unspecified constipation type Take 17 g by mouth 2 times daily. Can titrate based on response once bowels are moving better 800 g 2 08/20/20 18 Active omeprazole (PRILOSEC) 20 mg Oral Capsule, Delayed Release(E.C.) TAKE 1 CAPSULE BY MOUTH DAILY 30 Cap 11/22/19 19 Active Blood Sugar Diagnostic (ONETOUCH ULTRA BLUE TEST STRIP) Misc StripIndications:Un controlled type 2 diabetes mellitus with hyperosmolarity without coma, without long-term current use of insulin ([facility]) Dx: e11.9 50 Strip 03/27/20 19 Active zolpidem (AMBIEN) 10 mg Oral Tablet Take by mouth nightly as needed for Sleep. Active VIIBRYD 40 mg Oral TabletIndications:B ipolar affective disorder, manic, moderate ([facility]),Mood disorder TAKE 1 TABLET BY MOUTH TWICE DAILY. 30 Tab 09/04/20 19 Active ONETOUCH DELICA PLUS LANCET 30 gauge Misc Misc USE TO CHECK BLOOD GLUCOSE 2 TIMES A WEEK AT VARYING TIME 100 Each 09/12/20 19 Active HYDROcodone-acetami nophen (NORCO) 5-325 mg Oral Tablet TK 1 T PO Q 24 H PRN 0 09/25/20 19 Active BREO ELLIPTA 200-25 mcg/dose Inhl Disk with DeviceIndications:C hronic obstructive pulmonary disease, unspecified COPD type ([facility]) INHALE 200 MCG INTO THE LUNGS 60 Each 11/26/19 20 Active fUROsemide (LASIX) 20 mg Oral Tablet Take 1 Tab by mouth 2 times daily. 180 Tab 3 06/03/20 20 Active icosapent ethyL 1 gram Oral Capsule Take 2 g by mouth 2 times daily. 60 Cap 2 07/06/20 20 Active rivaroxaban (XARELTO) 2.5 mg Oral Tablet Take 1 Tab by mouth 2 times daily. 180 Tab 2 09/07/20 20 Active lisinopriL (PRINIVIL;ZESTRIL) 2.5 mg Oral TabletIndications:E ssential hypertension TAKE 1 TABLET BY MOUTH DAILY 30 Tab 1 04/12/20 21 Active atorvastatin (LIPITOR) 40 mg Oral Tablet TAKE 1 TABLET BY MOUTH DAILY 30 Tab 1 04/12/20 21 Active BASAGLAR KWIKPEN U-100 INSULIN 100 unit/mL (3 mL) SubQ Insulin Pen 03/24/20 21 Active ADMELOG SOLOSTAR U-100 INSULIN 100 unit/mL SubQ Insulin Pen 04/07/20 21 Active BD REGULAR BEVEL NEEDLES 18 gauge x 1 1/2 Misc Needle USE DIRECTED TO DRAW TESTOSTERONE ONCE EVERY 14 DAYS 03/05/20 21 Active aspirin 81 mg Oral Tablet, ChewableIndications :Uncontrolled type 2 diabetes mellitus with hyperglycemia ([facility]) CHEW AND SWALLOW 1 TABLET BY MOUTH DAILY 30 Tab 05/12/20 21 Active DEXCOM G7 GOLD NIB GRINDER Misc Misc As directed 03/23/20 23 Active DEXCOM G7 SENSOR Misc Device As directed 04/18/20 23 Active DEXCOM G6 TRANSMITTER Misc Device USE DIRECTED TO TEST BLOOD GLUCOSE LEVEL 03/02/20 23 Active buPROPion (WELLBUTRIN XL) 150 mg Oral Tablet Sustained Release 24 hr Take 150 mg by mouth daily. Active insulin aspart U-100 (NOVOLOG) 100 unit/mL (3 mL) SubQ Insulin Pen Active LORazepam (ATIVAN) 1 mg Oral Tablet Take 1 mg by mouth nightly as needed. for anxiety Active mirtazapine (REMERON) 15 mg Oral Tablet Take 15 mg by mouth daily. 04/18/20 23 Active nicotine (NICODERM CQ) 21 mg/24 hr TD Patch [address] 1 Patch onto the skin daily. 03/24/20 22 Active nystatin (MYCOSTATIN) Top Cream 01/20/20 23 Active pantoprazole (PROTONIX) 40 mg Oral Tablet, Delayed Release (E.C.) Take 40 mg by mouth daily. for stomach Active EASY COMFORT PEN NEEDLES 31 gauge x 5/16 Misc Needle USE FOUR TIMES DAILY as directed 04/18/20 23 Active OZEMPIC 0.25 mg or 0.5 mg (2 mg/3 mL) SubQ Pen Injector 05/02/20 23 Active sildenafiL (VIAGRA) 100 mg Oral Tablet A ctive testosterone cypionate (DEPOTESTOTERONE CYPIONATE) 200 mg/mL IM Oil Inject into the muscle every 14 days. Active traZODone (DESYREL) 150 mg Oral Tablet 03/15/20 23 Active venlafaxine (EFFEXOR-XR) 150 mg Oral Capsule, Sust. Release 24 hr Take 150 mg by mouth daily. Active TRINTELLIX 10 mg Oral tablet Active TOUJEO MAX U-300 SOLOSTAR 300 unit/mL (3 mL) SubQ Insulin Pen 04/18/20 23 Active doxycycline hyclate (VIBRAMYCIN) 100 mg Oral Capsule Take 100 mg by mouth 2 times daily. 07/31/20 23 Active SENNA 8.6 mg Oral Tablet TAKE ONE TABLET BY MOUTH TWICE DAILY NEEDED FOR CONSTIPATION 07/10/20 23 Active clopidogreL (PLAVIX) 75 mg Oral TabletIndications:A therosclerosis of tribal artery of right leg with rest pain (HCC),Peripheral arterial disease Take 1 Tablet by mouth daily. 30 Tablet 2 11/07/20 23 Active carvediloL (COREG) 25 mg Oral TabletIndications:V F (ventricular fibrillation) (HCC) Take 1 Tablet by mouth 2 times daily. 03/06/20 24 Active Active Problems Patient Care Coordination No te Formatting of this note migh t be different from the original. viibryd 20mg PA approved 09/12/2018-11/19/2039 08/24/[address] [facility] #[id number] (as expected) Pedro De Santiago MD Problem Noted Date Diagnosed Date VT (ventricular tachycardia) 08/02/2024 Dependent rubor 09/15/2023 Atherosclerosis of tribal ar lup[place] of right leg with rest pain 08/22/2023 Heart failure with reduced ejection fraction, [place] BURNETT class II 08/02/2023 Carotid stenosis, right 05/16/2023 Peripheral arterial disease 05/16/2023 Atherosclerosis with claudication of extremity 1 Cigarette nicotine dependenc e with nicotine-induced disorder 08/24/2021 Carotid bruit present 08/24/2021 Abnormal finding on MRI of brain 01/28/2019 Chronic systolic HF (heart failure) 12/27/2018 Dual ICD (implantable cardioverter-defibrillator ) in place 12/27/2018 Overview (12/27/2018): S/P Medtronic dual chamber ICD by Dr. Palumbo on 12/27/18 Encounter for therapeutic drug monitoring 2017 intermediate (current) use of anticoagulants 2017 Blood clot in vein 09/07/2018 Assessment & Plan (09/07/2018 5:21 PM EDT): It is somewhat unclear to me whether he was started on the blood thinner as a result of the open heart surgery or the blood clot in his IJ or combination of both. I will asked the patient to clarify with his cardiothoracic surgeon and contracting specialist on the estimated timeframe that he will need to be on blood thinners. Patient's insurance refuses to pay for Eliquis, Xarelto, or Pradaxa. The only anticoagulation they will pay for is Coumadin. Patient was brought to the office today to discuss Coumadin therapy. He was given samples of Eliquis to cover him until such time as his Coumadin is therapeutic. We discussed Coumadin therapies and monitoring. At this time I am going to start him on 7.5 mg daily and have him follow-up with a PT/INR on Monday or Monday of next week. He most likely will not be starting the Coumadin dosing until tomorrow so that we will put his first PT/INR on day 4 of therapy. I discussed with him the possibilities of under and over treatment with Coumadin. I discussed the effects of certain foods on Coumadin therapy. I discussed with him that he needs to continue his Eliquis until such time as we tell him it is safe to discontinue it because the Coumadin is therapeutic. We did discuss the risks of bleeding associated with any anticoagulation therapy. Bipolar affective disorder, manic, moderate 11/[address] elevation myocardial infarction ([place]) 08/10/2018 Hx of CABG 08/10/2018 Ischemic cardiomyopathy 08/10/2018 Syncope 08/06/2018 Cannabis abuse 08/06/2018 Vitamin D deficiency 07/25/2018 History of osteomyelitis 07/19/2018 Drug-induced erectile dysfunction 07/19/2018 Pure hypercholesterolemia 12/06/2016 Tobacco use 07/15/2016 Chronic low back pain 07/14/2016 Major depressive disorder, recurrent episode, mo derate 07/14/2016 Type 2 diabetes mellitus wit h diabetic nephropathy, without long-term current use of insulin 07/14/2016 MRSA carrier Essential hypertension COPD (chronic obstructive pulmonary disease) Mood disorder Resolved Problems Problem Noted Date Diagnosed Date Resolved Date Chest pain 08/06/2018 12/30/2020 Encounters Date Type Department Care Team Description 05/23/2025 Orders Only [facility] [address] [facility] [address] [place] [address] Ceci Palumbo MD Vector Remote Device from Last 3 Months Immunizations Immunization Administration Dates Next Due DT 10/04/2010 Influenza Vaccine, Unspecified Formulation 07/24,10/31/2010 Surgical History Surgery Date Site/Laterality Comments ELBOW SURGERY x 2 CORONARY ARTERY BYPASS GRAFT 07/27/2018 N/A Emergent Coronary artery bypass grafts x 5 using left saphenous vein x 4 and left internal mammary x 1. Transesophageal echocardiogram.; Surgeon: Song Grier MD; Location: [facility]; Service: Open Heart IR US GUIDED THORACENTESIS 08/01/2018 IR US GUIDED THORACENTESIS 08/01/2018 [facility] ULTRASOUND CARDIAC DEFIBRILLATOR PLACEMENT 12/27/2018 Left MDT D ICD implant-Dr. Palumbo IR ANGIOGRAM FEMORAL ARTERIO SHIFT 09/15/2023 IR ANGIOGRAM FEMORAL ARTERIO SHIFT 09/15/2023 Pedro De Santiago MD [facility] IR ABDOMINAL AORTOGRAM SERIALOGRAM 09/15/2023 IR ABDOMINAL AORTOGRAM SERIALOGRAM 09/15/2023 Pedro De Santiago MD [facility] IR ULTRASOUND GUIDED VASCULAR ACCESS 09/15/2023 IR ULTRASOUND GUIDED VASCULAR ACCESS 09/15/2023 Pedro De Santiago MD [facility] IR ANGIOGRAM FEMORAL ARTERIO SHIFT 03/04/2024 IR ANGIOGRAM FEMORAL ARTERIO SHIFT 03/04/2024 Pedro De Santiago MD [facility] IR ULTRASOUND GUIDED VASCULAR ACCESS 03/04/2024 IR ULTRASOUND GUIDED VASCULAR ACCESS 03/04/2024 Pedro De Santiago MD [facility] IR ABDOMINAL AORTOGRAM SERIALOGRAM 03/04/2024 IR ABDOMINAL AORTOGRAM SERIALOGRAM 03/04/2024 Pedro De Santiago MD [facility] IR Medical History Medical History Date Comments Depression Osteomyelitis of arm (HCC) after fracture and hardware removed Diabetes mellitus (HCC) MRSA carrier COPD (chronic obstructive pu lmonary disease) (HCC) HTN (hypertension) Cannabis abuse 08/06/2018 Type 2 diabetes mellitus wit h diabetic nephropathy, without long-term current use of insulin ([facility]) Ischemic cardiomyopathy 08/10/2018 Essential hypertension WILSON (dyspnea on exertion) Orthopnea Asthma Family History Medical History Relation Name Comments No Known Problems Father Diabetes Mother Heart Disease Paternal Grandfather Heart Disease Paternal Grandmother Relation Name Status Comments Father Other Mother Alive Paternal Grandfather Paternal Grandmother Social History Tobacco Use Types Packs/Day Years Used Date Smoking Tobacco: Former Cigarettes 0.5 33.9 S tarted: 07/21/1991 Passive Smoke Exposure: Current Smokeless Tobacco: Never Tobacco Cessation:Counseling Given: Not Answered Comments:using patches and cutting back Alcohol Use Standard Drinks/Week Comments No 0 (1 standard drink = 0.6 oz pur e alcohol) PHQ-2 Answer Date Recorded PHQ-2 Score 6 04/10/2019 Sexually Active Control Partners Comments Not Currently Female Sex and Gender Information Value Date Recorded Sex Assigned at Not on file Legal Sex Male 9:04 PM EDT Gender Identity Not on file Sexual Orientation Not on file Obstetrics History Last Filed Vital Signs Vital Sign Reading Time Taken Comments Blood Pressure 100/70 08/06/2024 1:56 PM EDT Pulse 65 08/06/2024 1:56 PM EDT Temperature 36.4 C (97.6 F) 03/06/2024 5:36 PM EDT Respiratory Rate 20 03/06/2024 5:36 PM EDT Oxygen Saturation 94% 08/06/2024 1:56 PM EDT Inhaled Oxygen Concentration - - Weight 136.1 kg (300 lb) 08/06/2024 1:56 PM EDT Height 188 cm (6' 2 ) 03/04/2024 8:56 AM EDT Body Mass Index 38.52 03/04/2024 8:56 AM EDT Plan of Treatment Upcoming Encounters Date Type Department Care Team (Late st Contact Info) Description 08/07/2025 1:00 PM EDT Office Visit [facility] [address] [facility] [address] [place] [address] 08/07/2025 1:30 PM EDT Office Visit [facility] [address] [facility] [address] [place] [address] Josselin Ramos, MECHANICAL ASSEMBLY [address] [place] [address] Health Maintenance Due Date Last Done Comments Wellness Exam Medicare 1981 Hepatitis B Vaccine (1 of 3 - 19+ 3-dose series) 1997 Hemoglobin A1c 02/11/2019 08/14/2018, 06/22, 10/10/2016, Additional history exists Diabetic Eye Exam 07/26/2020 07/26/2018 DTaP/TDaP/Td (2 - Tdap) 10/04/2020 10/04/2010 Lipids 07/03/2021 07/03/2020, 07/22, 07/19/2018, Additional history exists Kidney Health: uACR 10/04/2022 10/04/2021, 08/15/2018, 10/10/2016, Additional history exists Cologuard 2023 Colon Cancer Screening 2023 Colonoscopy 2023 FIT 2023 Sigmoidoscopy 2023 Virtual Colonography 2023 COVID-19 Vaccine ( season) 2024 Kidney Health: eGFR 03/06/2025 03/06/2024, 03/04/2024, 09/15/2023, Additional history exists Influenza Vaccine (#1) 2025 , 09/22/2022, 10/01/2021, Additional history exists Pneumococcal Vaccine 0-49 Completed 09/06/2023, 11/2018 Meningococcal B Vaccine Aged Out No l onger eligible based on patient's age to complete this topic Goals Goal Patient Goal Type Associated Problems Recent Progress Patient-Stated? Author Blood Pressure < 140/90 Blood Pressure 100/70(2023 1:56 PM EDT) No Breann Pickard RMA BMI (Calculated) < 30 General 38.6(03/04/20 24 8:56 AM EDT) No Breann Pickard RMA Maintain a healthy diet, exercise regularly and maintain an ideal body weight General No Delaney Zhang RMA Stay Tobacco Free Lifestyle No Delaney Zhang RMA HEMOGLOBIN A1C < 7.0 Result Component 8.1( 8 12:00 PM EDT) No Breann Pickard RMA Medical Devices Implanted Type Area Turf Grower Device Identifier Shelf Expiration Date Model / Serial / Lot Device Evera Mri Xt Dr - [id number] Implanted:Qty: 1 on 12/27/2018 by Ceci Palumbo MD at [facility] ICD MEDTRONIC:PACING SYS [id number] / [id number] / Lead Pcng 62cm Rv Trplr Scr In Xtd-Retrac Hlx Eltrd Gail Insl - [id number] Implanted:Qty: 1 on 12/27/2018 by Ceci Palumbo MD at [facility] Lead [employer]:PACING SYS [id number] / [id number] / Lead Pacing Implantable Capsurefix Novus 52cm Atrial/Ventric - [id number] Implanted:Qty: 1 on 12/27/2018 by Ceci Palumbo MD at [facility] Lead [employer]IC:PACING SYS [id number] / [id number] / Stent Everflex Entrust 6 X 120 X 150-09/15/2023 Implanted:Qty: 1 on 09/15/2023 by Pedro De Santiago MD EV3 [id number] 0-150 / / [id number] Stent Innova [id number] Otw Se 0.035in Gw 6fr Shth Compat-03/04/2024 Implanted:Qty: 1 on 03/04/2024 by Pedro De Santiago MD [employer]:PERIPHERAL INTERVENTIONS [id number] / / [id number] Procedures Procedure Name Priority Date/Time Associated Diagnosis Comments ID INTERROGATION EVAL REMOTE </90 D 1/2/[place]URK[place] LINE ATTENDANT LD DFB Routine 05/23/2025 12:00 AM EDT Vector Remote Device BASIC METABOLIC PANEL STAT 03/06/2024 3:41 PM EDT LIPID SCREEN Routine 07/03/2020 3:02 PM EDT ASHD (arteriosclerotic heart disease) Essential hypertension Pure hypercholesterolemia MICROALBUMIN/CREATI NINE RATIO URINE Routine 08/15/2018 11:03 AM EDT Uncontrolled type 2 diabetes mellitus with hyperosmolarity without coma, without long-term current use of insulin (HCC) HEMOGLOBIN A1C Routine 08/14/2018 12:00 PM EDT Uncontrolled type 2 diabetes mellitus with hyperosmolarity without coma, without long-term current use of insulin (HCC) HM DIABETES EYE EXAM Routine 07/26/2018 from Last 3 Months or Most Recently Relevant to Health Maintenance Results * VECTOR REMOTE DEVICE (05/23/2025 12:00 AM EDT) 05/23/2025 Narrative [facility] - 05/23/2025 12:00 AM EDT No episodes. Mode: AAI<=>DDD. AP: 1%. SCHOOL BUS AIDE: 0.1%. Normal device function. Device Advisory. us Ceci Palumbo MD [facility] CARDIAC CATH ORDERABLES F inal Result [facility] [address] [place], [place] [id number] * (ABNORMAL) BASIC METABOLIC PANEL (03/06/2024 3:41 PM EDT) Sodium 139 136 - 145 mmol/L 03/06/2024 4:22 PM EDT [facility] Potassium 4.4 3.5 - 5.0 mmol/L 03/06/2024 4:22 PM EDT [facility] Chloride 103 98 - 107 mmol/L 03/06/2024 4:22 PM EDT [facility] Total CO2 24 22 - 29 mmol/L 03/06/2024 4:22 PM EDT [facility] Anion Gap 12 7 - 16 mmol/L 03/06/2024 4:22 PM EDT [facility] Calcium 9.6 8.6 - 10.4 mg/dL 03/06/2024 4:22 PM EDT [facility] Glucose Lvl 128(H) 70 - 99 mg/dL 03/06/2024 4:22 PM EDT [facility] BUN 21(H) 6 - 20 mg/dL 03/06/2024 4:22 PM EDT [facility] Creatinine 1.47(H) 0.67 - 1.30 mg/dL 03/06/2024 4:22 PM EDT [facility] eGFR (CKD-EPIcr 2020) 60 >=60 mL/min/1.7 3 m2 03/06/2024 4:22 PM EDT [facility] Comment:Estimated GFR was ca lculated using the CKD-EPIcr (2020) equation refit without race. The equation is recommended by the National Kidney Foundation - [place] [employer] of Nephrology Task Force. Blood VENOUS BLOOD / Unknown Venipuncture / Unknown 03/06/2024 3:41 PM EDT 03/06/2024 3:57 PM EDT us Abida Taylor MD CHEMISTRY ORDERABLES Final Result Performing Organization Address City/[facility]/ZIP Co de Phone Number [facility] [address] [place] [address] * (ABNORMAL) LIPID SCREEN (07/03/2020 3:02 PM EDT) [facility] Cholesterol 196 <200 mg/dL 07/03/2020 7:58 PM EDT [facility] [employer] Comment: < 200 Desirable 200 - 239 Borderline High >= 240 High Triglyceride 859(H) <150 mg/dL 07/03/2020 7:58 PM EDT [facility] [employer] Comment: < 150 Normal 150 - 199 Borderline High 200 - 499 High >= 500 Very High HDL 27(L) >=40 mg/dL 07/03/2020 7:58 PM EDT [facility] [employer] Comment: > 60 Optimal 40 - 60 Acceptable < 40 Low LDL Calculated <4 <100 mg/dL 07/03/2020 7:58 PM EDT [employer] [employer] Comment: < 100 Optimal 100 - 129 Near or above optimal 130 - 159 Borderline High 160 - 189 High >= 190 Very High Non-HDL-C Calculated 169(H) <=129 mg/dL 07/03/2020 7:58 PM EDT [employer] Comment: <130 Desirable 130-159 Above Desirable 160-189 Borderline High 190-219 High >= 220 Very High Fasting Specimen? Yes None 020 7:58 PM EDT [facility] [employer] Comment:patient ate breakfas t at 10:30am Blood Venipuncture / Unknown 07/03/2020 3:02 PM EDT 07/03/2020 3:02 PM EDT us Mukund Ramirez MD CHEMISTRY ORDERABLES Final R esult Performing Organization Address City/[facility]/ZIP Co de Phone Number [facility] [employer] [employer] [address] [facility], [place] [address] * MICROALBUMIN/CREATININE RATIO URINE (08/15/2018 11:03 AM EDT) Urine Microalb <12.0 mg/L 08/15/2018 5:03 PM EDT [facility] [employer] [facility] Urine Creatinine 173.9 mg/dL 08/15/2018 5:03 PM EDT [facility] [employer] [facility] Ur Microalb/Creat 0 - 30 mg/g 08/15/2018 5:03 PM EDT [facility] Comment:Unable to calculate due to value outside linearity Urine 08/15/2018 11:0 3 AM EDT 08/15/2018 11:03 AM EDT us Umm Grimes MECHANICAL ASSEMBLY URINE ORDERABLES Final Re sult [facility] [employer] [facility] [address] [facility], [place] [address] [facility] [address] [place] [address] * (ABNORMAL) HEMOGLOBIN A1C (08/14/2018 12:00 PM EDT) Pathologist [facility] Hgb A1C 8.1(H) 4.2 - 5.6 % 08/14/2018 2:43 PM EDT [facility] [employer] [facility] Est. Avg Glucose 186 mg/dL 08/14/2018 2:43 PM EDT [facility] [employer] [facility] Blood Venipuncture / Unknown 08/14/2018 12:00 PM EDT 08/14/2018 12:00 PM EDT Narrative [facility] [employer] [facility] - 08/14/2018 2:43 PM EDT REFERENCE RANGE: Normal: 4.0-5.6% Pre-diabetes: 5.7-6.4% Provisional diagnosis of diabetes: >6.4% Hgb F>10% and anything which shortens red cell survival, such as hemolytic anemia, or unstable hemoglobin variants such as HbSS, HbSC, or HbCC, will lower the HbA1c value associated with a given level of glycemic control. us Umm Grimes MECHANICAL ASSEMBLY CHEMISTRY ORDERABLES Asha l Result [facility] [address] [facility] , [place] [address] * DIABETES EYE EXAM (07/26/2018) Left Diabetic Retinopathy Not Present Present/Not Present SEP OFFICE Right Diabetic Retinopathy Not Present Present/Not Present SEP OFFICE Umm Grimes MECHANICAL ASSEMBLY HEALTH MAINTENANCE Final Result SEP OFFICE from Last 3 Months or Most Recently Relevant to Health Maintenance Insurance [place] Advance Directives For more information, please contact: [phone] * Full Code (Latest Code Status on File) Date Activated Date Inactivated Comments 08/06/2018 8:13 AM 08/08/2018 2:10 AM * Full Code Date Activated Date Inactivated Comments 07/27/2018 7:21 AM 07/31/2018 4:16 PM Care Teams Tug Boat Captain Relationship Specialty Start Date End Date David Stockton MD PCP - General Family Medicine 09/12/19
--- OUTSIDE RECORDS SUMMARY | 2025-06-05 09:49 | XMS_ITS | Encounter Summary ---
Author Organization [place] [address] Care Team Providers Care Berry Grower Name Role Phone Daivd Stockotn MD Primary Care Provider [phone] Encounter Details Date Type Department Care Team (Late st Contact Info) Description 05/23/2025 Orders Only [facility] [address] [facility] [address] [place] [phone] Ceci Palumbo MD [address] [place] [address] Vector Remote Device Social History Tobacco Use Types Packs/Day Years Used Date Smoking Tobacco: Former Cigarettes 0.5 33.9 S tarted: 07/21/1991 Passive Smoke Exposure: Current Smokeless Tobacco: Never Comments:using patches and c [...] of Assessment Author No 07/31/2018 11:04 AM LUZ ELENAT Viki Flanagan APRN * Does this person have difficulty dressing or bathing? Answer Date of Assessment Author No 07/31/2018 11:04 AM EDT Viki Flanagan APRN * Because of a physical, mental or emotional condition, does this person have difficulty doing errands alone such as visiting a doctor's office or shopping? Answer Date of Assessment Author No 07/31/2018 11:04 AM EDViki Pinto APRN documented as of this encounter Mental [...] EDT Office Visit [facility] [address] [place] [phone] 08/07/2025 1:30 PM EDT Office Visit [facility] [address] [place] [phone] Josselin Ramos APRN [address] [place] [address] [phone] documented as of this encounter Goals Goal Patient Goal Type Associated Problems Recent Progress Patient-Stated? Author Blood Pressure < 140/90 Blood Pressure 100/70(2023 1:56 PM EDT) No Breann Pickard, RMA BMI (Calculated) < 30 General 38.6(03/04/20 8:56 AM EDT) No Breann Pickard, RMA Maintain a healthy diet, exercise regularly and maintain an ideal body weight General No ZhangDelaney harris M, RMA Stay Tobacco Free Lifestyle No Delaney Zhang, RMA HEMOGLOBIN A1C < 7.0 Result Component 8.1( 8 12:00 PM EDT) No Breann Pickard RMA documented as of this encounter Procedures Procedure Name Priority Date/Time Associated Diagnosis Comments [place] INTERROGATION EVAL REMOTE </90 D 1/2/SUBSTATION OPERATOR HELPER LD DFB Routine 05/23/2025 12:00 AM EDT Vector Remote Device documented in this encounter Results * VECTOR REMOTE DEVICE (05/23/2025 12:00 AM EDT) 05/23/2025 Narrative [facility] - 05/23/2025 12:00 AM EDT No episodes. Mode: AAI<=>DDD. AP: 1%. DATA CODER OPERATOR: 0.1%. Normal device function. Device Advisory. Ceci Palumbo MD [facility] CATH ORDERABLES F inal Result [facility] [address] [place] [address] documented in this encounter Visit Diagnoses Diagnosis Vector Remote Device documented in this encounter Additional Health Concerns Assessment Noted Time PHQ-9 Depression Total Score: 21 07/19/ 018 8:28 AM EDT PHQ-2 Depression Total Score: 6 07/19/20 18 8:28 AM EDT documented as of this encounter Care Teams Berry Grower Relationship Specialty Start Date End Date David Stockton MD PCP - General Family Medicine 09/12/19 documented as of this encounter
[2025-06-06 05:53] LABS: Hepatitis B Surface Antigen Negative (Negative)
== END 2025-06-04 23:59 | disposition home or self-care (01) ==
LOC: LAB.DROPOF 06-05 09:47
PROVIDERS: PCP Family Medicine; Visit Provider Family Medicine
DX: E11.51 Type 2 diabetes mellitus with diabetic peripheral angiopathy without gangrene (principal); E78.2 Mixed hyperlipidemia; I11.9 Hypertensive heart disease without heart failure; Z11.59 Encounter for screening for other viral diseases; E11.65 Type 2 diabetes mellitus with hyperglycemia
CPT/HCPCS: 80053; 80061; 80074; 82043; 82570; 85025; 87340; 87389

== ENCOUNTER 2025-07-04 15:55 | Outpatient (CLI) | payer MEDICARE, MEDICAID, SELFPAY ==
[2025-07-04 19:02] LABS: Hematocrit 55.9 % (42.0-52.0); Immature Granulocytes % 0.8 %; Mean Corpuscular HGB Conc 32.4 g/dL (31.8-35.4); Mean Corpuscular Hemoglobin 30.3 pg (27.0-31.2); Mean Corpuscular Volume 93.5 fl (80-94); Nucleated Red Blood Cells % 0 %; Platelet Count 236 K/mm3 (142-424); Red Blood Count 5.98 M/mm3 (4.60-6.20); Red Cell Distribution Width-SD 51.0 fL; White Blood Count 10.1 K/mm3 (4.8-10.8)
[2025-07-04 19:46] LABS: Albumin Level 4.1 g/dl (3.5-5.0); Chloride 109 mmol/L (98-107); Potassium 4.3 mmoL/L (3.5-5.1); Sodium 141 mmol/L (136-145)
[2025-07-04 19:48] LABS: Blood Urea Nitrogen 24 mg/dl (9-20); Creatinine,Serum 1.50 mg/dl (0.66-1.25); Estimated Glomerular Filt Rate 50 ml/min (>60); GFR (African American) 61 ML/MIN (>60)
[2025-07-04 19:49] LABS: Alanine Aminotransferase 20 U/L (12-78); Albumin/Globulin Ratio 1.4 (1.1-1.8); Alkaline Phosphatase 71 U/L (38-126); Anion Gap 11.3 mEq/L (5-15); Aspartate Amino Transferase 22 U/L (17-59); Bilirubin,Total 0.5 mg/dl (0.2-1.3); Carbon Dioxide 25 mmol/L (22.0-30.0); Globulin 2.9 g/dL (1.3-3.2); Total Protein,Serum 7.0 g/dl (6.3-8.2)
[2025-07-04 19:55] LABS: Calcium 9.4 mg/dl (8.4-10.2); Glucose 95 mg/dl (74-100)
[2025-07-05 00:13] LABS: Hemoglobin 18.1 g/dL (14.1-18.0)
[2025-07-06 10:10] LABS: Testosterone,Total 231 ng/dL (264-916)
--- OUTSIDE RECORDS SUMMARY | 2025-07-07 12:00 | XMS_ITS | Encounter Summary ---
Author Organization [place] [address] Care Team Providers Care Irish Moss Bleacher Name Role Phone David Stockton MD Primary Care Provider [phone] Encounter Details Date Type Department Care Team (Late st Contact Info) Description 05/23/2025 Orders Only [facility] [address] [facility] [address] [place] [phone] Ceci Palumbo MD [address] [place] [address] Vector Remote Device Social History Tobacco Use Types Packs/Day Years Used Date Smoking Tobacco: Former Cigarettes 0.5 34 S tarted: 07/21/1991 Passive Smoke Exposure: Current [...] EDT Office Visit [facility] [address] [place] [phone] 08/07/2025 1:30 PM EDT Office Visit [facility] [address] [place] [phone] Josselin Ramos APRN [address] [place] [phone] documented as of this encounter Goals Goal [...] CHEVY Stay Tobacco Free Lifestyle No Delaney Zhang, CHEVY HEMOGLOBIN A1C < 7.0 Result Component 8.1( 8 12:00 PM EDT) No Breann Pickard RMA documented as of this encounter Procedures Procedure Name Priority Date/Time Associated Diagnosis Comments [place] INTERROGATION EVAL REMOTE </90 D 1/2/TOW BOAT CAPTAIN LD DFB Routine 05/23/2025 12:00 AM EDT Vector Remote Device documented in this encounter Results * VECTOR REMOTE DEVICE (05/23/2025 12:00 AM EDT) 05/23/2025 Narrative [facility] - 05/23/2025 12:00 AM EDT No episodes. Mode: AAI<=>DDD. AP: 1%. GLOBE CLEANER: 0.1%. Normal device function. Device Advisory. Ceci Palumbo MD [facility] CATH ORDERABLES F inal Result [facility] [address] [place] [address] documented in this encounter Visit Diagnoses Diagnosis Vector Remote Device documented in this encounter Additional Health Concerns Assessment Noted Time PHQ-9 Depression Total Score: 21 07/19/ 018 8:28 AM EDT PHQ-2 Depression Total Score: 6 07/19/20 18 8:28 AM EDT documented as of this encounter Care Teams Irish Moss Bleacher Relationship Specialty Start Date End Date David Stockton MD PCP - General Family Medicine 09/12/19 documented as of this encounter
--- OUTSIDE RECORDS SUMMARY | 2025-07-07 12:00 | XMS_ITS | Clinical Summary ---
Author Organization [facility] Address [address] [place] [address] Phone Care Team Providers Care Settlement Clerk Name Role Phone David Stockton MD Primary Care Provider [phone] Allergies Active Allergy Reactions Criticality Noted Date Comments Codeine 10/04/2010 Penicillins 10/04/2010 Sulfa (Sulfonamide Antibiotics) Nausea Only Medications albuterol (PROVENTIL HFA;VENTOLIN HFA) 90 mcg/actuation Inhl HFA Aerosol InhalerIndications: Chronic obstructive pulmonary disease, unspecified COPD type ([facility]) Inhale 2 Puffs into the lungs every [...] without long-term current use of insulin ([facility]) Dx: e11.9 50 Strip 03/27/20 19 Active zolpidem (AMBIEN) 10 mg Oral Tablet Take by mouth nightly as needed for Sleep. Active VIIBRYD 40 mg Oral TabletIndications:B ipolar affective disorder, manic, moderate ([facility]),Mood disorder TAKE 1 TABLET BY MOUTH TWICE [...] obstructive pulmonary disease, unspecified COPD type ([facility]) INHALE 200 MCG INTO THE LUNGS 60 [...] type 2 diabetes mellitus with hyperglycemia ([facility]) CHEW AND SWALLOW 1 TABLET BY MOUTH DAILY 30 Tab 05/12/20 21 Active DEXCOM G7 MANUFACTURING ASSEMBLER Misc Misc As directed 03/23/20 23 Active [...] (PLAVIX) 75 mg Oral TabletIndications:A therosclerosis of [place] artery of right leg with rest pain [...] original. viibryd 20mg PA approved 09/12/2018-11/19/2039 08/24/21 [facility] #[id number] (as expected) Pedro De Santiago MD Problem Noted Date Diagnosed Date VT (ventricular tachycardia) 08/02/2024 Dependent rubor 09/15/2023 Atherosclerosis of [place] ar [place] of right leg with rest [...] 12/27/18 Encounter for therapeutic drug monitoring 2017 assisted (current) use of anticoagulants 2017 Blood clot in vein 09/07/2018 Assessment & Plan (09/07/2018 5:21 PM EDT): It is somewhat unclear to me whether he was started on the blood thinner as a result of the open heart surgery or the blood clot in his IJ or combination of both. I will asked the patient to clarify with his cardiothoracic surgeon and communications scientist on the estimated timeframe that he will [...] Orders Only [facility] [address] [facility] [address] [place] [address] Ceci Palumbo MD Vector Remote [...] carrier COPD (chronic obstructive pu lmonary disease) ([facility]) HTN (hypertension) Cannabis abuse 08/06/2018 Type 2 diabetes mellitus wit h diabetic nephropathy, without long-term current use of insulin ([facility]) Ischemic cardiomyopathy 08/10/2018 Essential hypertension WILSON (dyspnea [...] Office Visit [facility] [address] [facility] [address] [place] [address] 08/07/2025 1:30 PM EDT Office Visit [facility] [address] [facility] [address] [place] [address] Josselin Ramos, ELECTRICAL TIMING DEVICE CALIBRATOR [address] [place] [address] Health Maintenance Due Date Last [...] Pickard RMA Medical Devices Implanted Type Area Licensing Director Device Identifier Shelf Expiration Date Model / Serial / Lot Device Evera Mri Xt Dr - [id number] Implanted:Qty: 1 on 12/27/2018 by Ceci Palumbo MD at [facility] ICD [employer]:PACING SYS [id number] / [id number] / Lead Pcng 62cm Rv Trplr Scr In Xtd-Retrac Hlx Eltrd Gail Insl - [id number] Implanted:Qty: 1 on 12/27/2018 by Ceci Palumbo MD at [facility] Lead [employer]:PACING SYS [id number] / [id number] / Lead Pacing Implantable Capsurefix Novus 52cm Atrial/Ventric - [id number] Implanted:Qty: 1 on 12/27/2018 by Ceci Palumbo MD at [facility] Lead [employer]:PACING SYS [id number] / [id number] / Stent Everflex Entrust 6 X 120 X 150-09/15/2023 Implanted:Qty: 1 on 09/15/2023 by Pedro De Santiago MD EV3 [id number] / / [id number] Stent Innova [id number] Otw Se 0.035in Gw 6fr Shth Compat-03/04/2024 Implanted:Qty: 1 on 03/04/2024 by Pedro De Santiago MD [employer]:PERIPHERAL INTERVENTIONS [id number] / / [id number] Procedures Procedure Name Priority Date/Time Associated Diagnosis Comments [place] INTERROGATION EVAL REMOTE </90 D 1/2/LENS MOUNTER LD DFB Routine 05/23/2025 12:00 AM EDT [...] DEVICE (05/23/2025 12:00 AM EDT) 05/23/[address] [facility] - 05/23/2025 12:00 AM EDT No episodes. Mode: AAI<=>DDD. AP: 1%. SHAREHOLDER: 0.1%. Normal device function. Device Advisory. us Ceci Palumbo MD [facility] CATH ORDERABLES F inal Result [facility] [address] [place], [place] [id number] * (ABNORMAL) BASIC METABOLIC PANEL (03/06/2024 3:41 PM EDT) Sodium 139 136 - 145 mmol/L 03/06/2024 4:22 PM EDT [facility] Potassium 4.4 3.5 - 5.0 mmol/L 03/06/2024 4:22 PM EDT [facility] Chloride 103 98 - 107 mmol/L 03/06/2024 4:22 PM EDT [facility] Total CO2 24 22 - 29 mmol/L 03/06/2024 4:22 PM EDT [facility] Anion Gap 12 7 - 16 mmol/L 03/06/2024 4:22 PM EDT [facility] Calcium 9.6 8.6 - 10.4 mg/dL 03/06/2024 4:22 PM EDT [facility] Glucose Lvl 128(H) 70 - 99 mg/dL 03/06/2024 4:22 PM EDT [facility] BUN 21(H) 6 - 20 mg/dL 03/06/2024 4:22 PM EDT [facility] Creatinine 1.47(H) 0.67 - 1.30 mg/dL 03/06/2024 4:22 PM EDT [facility] eGFR (CKD-EPIcr 2020) 60 >=60 mL/min/1.7 3 m2 03/06/2024 4:22 PM EDT [facility] Comment:Estimated GFR was ca lculated using the CKD-EPIcr (2020) equation refit without race. The equation is recommended by the National Kidney Foundation - [place] [employer] Nephrology Task Force. Blood VENOUS BLOOD / Unknown Venipuncture / Unknown 03/06/2024 3:41 PM EDT 03/06/2024 3:57 PM EDT us Abida Taylor MD CHEMISTRY ORDERABLES Final Result Performing Organization Address City/[facility]/ZIP Co de Phone Number [facility] [address] [place] [address] * (ABNORMAL) LIPID SCREEN (07/03/2020 3:02 PM EDT) Pathologist [facility] Cholesterol 196 <200 mg/dL 07/03/2020 7:58 PM EDT [facility] Comment: < 200 Desirable 200 - 239 Borderline High >= 240 High Triglyceride 859(H) <150 mg/dL 07/03/2020 7:58 PM EDT [facility]REFERRED [facility] Comment: < 150 Normal 150 - 199 Borderline High 200 - 499 High >= 500 Very High HDL 27(L) >=40 mg/dL 07/03/2020 7:58 PM EDT [facility] Comment: > 60 Optimal 40 - 60 Acceptable < 40 Low LDL Calculated <4 <100 mg/dL 07/03/2020 7:58 PM EDT [facility] [facility] Comment: < 100 Optimal 100 - 129 Near or above optimal 130 - 159 Borderline High 160 - 189 High >= 190 Very High Non-HDL-C Calculated 169(H) <=129 mg/dL 07/03/2020 7:58 PM EDT [facility] Comment: <130 Desirable 130-159 Above Desirable 160-189 Borderline High 190-219 High >= 220 Very High Fasting Specimen? Yes None 020 7:58 PM EDT [facility] Comment:patient ate breakfas t at 10:30am Blood Venipuncture / Unknown 07/03/2020 3:02 PM EDT 07/03/2020 3:02 PM EDT us Mukund Ramirez MD CHEMISTRY ORDERABLES Final R esult Performing Organization Address City/[facility]/ZIP Co de Phone Number PREFERRED LAB [facility] [employer] [address] [facility] [place] [id number] * MICROALBUMIN/CREATININE RATIO URINE (08/15/2018 11:03 AM EDT) Urine Microalb <12.0 mg/L 08/15/2018 5:03 PM EDT [facility] [employer] [facility] Urine Creatinine 173.9 mg/dL 08/15/2018 5:03 PM EDT [facility] [employer] [facility] Ur Microalb/Creat 0 - 30 mg/g 08/15/2018 5:03 PM EDT [facility] Comment:Unable to calculate due to value outside linearity Urine 08/15/2018 11:0 3 AM EDT 08/15/2018 11:03 AM EDT us Umm Grimes ELECTRICAL TIMING DEVICE CALIBRATOR URINE ORDERABLES Final Re sult [facility] [address] [facility], [place] [address] [facility] [address] [place] [address] * (ABNORMAL) HEMOGLOBIN A1C (08/14/2018 12:00 PM EDT) Pathologist [facility] Hgb A1C 8.1(H) 4.2 - 5.6 % 08/14/2018 2:43 PM EDT [facility] [employer] [facility] Est. Avg Glucose 186 mg/dL 08/14/2018 2:43 PM EDT [facility] [employer] [facility] Blood Venipuncture / Unknown 08/14/2018 12:00 PM EDT 08/14/2018 12:00 PM EDT Narrative [facility] [employer] [facility] - 08/14/2018 2:43 PM EDT REFERENCE RANGE: Normal: 4.0-5.6% Pre-diabetes: 5.7-6.4% Provisional diagnosis of diabetes: >6.4% Hgb F>10% and anything which shortens red cell survival, such as hemolytic anemia, or unstable hemoglobin variants such as HbSS, HbSC, or HbCC, will lower the HbA1c value associated with a given level of glycemic control. us Umm Grimes APRN CHEMISTRY ORDERABLES Asha l Result PREFERRED LAB [facility] [address] [facility] , [place] [address] * DIABETES EYE EXAM (07/26/2018) Left Diabetic Retinopathy Not Present Present/Not Present SEP OFFICE Right Diabetic Retinopathy Not Present Present/Not Present SEP OFFICE Umm Grimes ELECTRICAL TIMING DEVICE CALIBRATOR HEALTH MAINTENANCE Final Result SEP OFFICE from Last 3 Months or Most Recently Relevant to Health Maintenance Insurance [place] Advance Directives For more information, please contact: [phone] * Full Code (Latest Code Status on File) Date Activated Date Inactivated Comments 08/06/2018 8:13 AM 08/08/2018 2:10 AM * Full Code Date Activated Date Inactivated Comments 07/27/2018 7:21 AM 07/31/2018 4:16 PM Care Teams Settlement Clerk Relationship Specialty Start Date End Date David Stockton MD PCP - General Family Medicine 09/12/19
--- OUTSIDE RECORDS SUMMARY | 2025-07-07 12:00 | XMS_ITS | Clinical Summary ---
Author Organization [facility] Address [address] [place] [address] Care Team Providers Care Vice President Sales And Marketing Name Role Phone David Stockton MD Primary Care Provider [phone] Allergies Active Allergy Reactions Criticality Noted Date [...] split. Active ergocalciferol (Vitamin D-2) 1.25 MG (55669 UT) capsule Take 50,000 Units by mouth [...] Continuous Blood Gluc Sensor (Dexcom G6 Sensor) [facility] USE as directed TO test blood glucose [...] Screening 1978 [facility]-Medicare Annual Wellness (AWV) 1978 [facility]-/Child/Adol SDOH Screenings 1978 [facility]- SDOH Screenings 1996 [facility]-Adult SDOH Screenings 1996 [facility]-Hepatitis B Vaccines (1 of 3 - 19+ 3-dose series) 1997 [facility]-DTaP,Tdap,and Td Vaccines (2 - Tdap) 10/04/2020 10/04/2010 CT Colonography 2023 Colonoscopy 2023 FIT-DNA 2023 FIT 2023 FOBT 2023 Sigmoidoscopy 2023 [facility]-Colorectal Cancer Screening 2023 [id number] Vaccine (2023- season) 2024 [facility]-Influenza Vaccine (#1) [...] 09/30/2021 Insurance [place]ICAID[place] MEDICARE Care Teams Vice President Sales And Marketing Relationship Specialty Start Date End Date David Stockton MD PCP - General 10/04/21
--- OUTSIDE RECORDS SUMMARY | 2025-07-07 12:00 | XMS_ITS | Encounter Summary ---
Author Organization [place] [address] Care Team Providers Care Ethnographer Name Role Phone Umm Grimes APRN Primary Care Provider [phone] David Stockton MD Primary Care Provider [phone] Encounter Details Date Type Department Care Team (Late st Contact Info) Description 12/28/2018 Orders Only [facility] [address] [facility] [address] [place] [address] Ceci Palumbo MD [address] [place], [place] [phone] Social History Tobacco Use Types Packs/Day Years Used Date Smoking Tobacco: Every Day Cigarettes 0.5 34 Started: 07/21/1991 Smokeless Tobacco: Never Comments:using patches [...] EDT Office Visit [facility] [address] [place] [phone] 08/07/2025 1:30 PM EDT Office Visit [facility] [address] [place] [phone] Josselin Ramos APRN [address] [place] [phone] documented as of this encounter Goals [...] EST) 12/28/2018 12:5 0 AM EST Narrative [facility] - 12/27/2018 7:51 PM EST IMPLANT REPORT us Ceci Palumbo MD [facility] CATH ORDERABLES F inal Result [facility] 1 [place] [address] documented in this encounter Visit Diagnoses Not on filedocumented in this encounter Additional Health Concerns Assessment Noted Time PHQ-9 Depression Total Score: 21 018 8:28 AM EDT PHQ-2 Depression Total Score: 6 07/19/20 18 8:28 AM EDT documented as of this encounter Care Teams Ethnographer Relationship Specialty Start Date End Date Umm Grimes APRN [address] [place] [phone] PCP - General Nurse Practitioner-Family 07/19/18 David Stockton MD [address] [phone] PCP - General Family Medicine 09/12/19 documented as of this encounter
== END 2025-07-04 23:59 ==
LOC: LAB.DROPOF 07-07 11:59
PROVIDERS: PCP Family Medicine; Visit Provider Family Medicine
DX: E11.51 Type 2 diabetes mellitus with diabetic peripheral angiopathy without gangrene (principal); N52.1 Erectile dysfunction due to diseases classified elsewhere; R10.13 Epigastric pain
CPT/HCPCS: 80053; 84403; 85025